=== PATIENT | male | born 1960 | race Caucasian/White ===

== ENCOUNTER 2017-10-01 09:07 | Outpatient (CLI) | payer OTHER ==
[~2017-10-01 09:07] MED LIST: DICL100G15 TOP; NO HOME MEDS
== END 2017-10-01 23:59 | disposition home or self-care (01) ==
LOC: RAD 09:07
PROVIDERS: ATTEND Family Medicine
DX: I12.9 Hypertensive chronic kidney disease with stage 1 through stage 4 chronic kidney disease, or unspecified chronic kidney disease (principal); I10 Essential (primary) hypertension; N18.1 Chronic kidney disease, stage 1; N20.0 Calculus of kidney
CPT/HCPCS: 76775

== ENCOUNTER 2017-12-10 07:05 | Outpatient (CLI) | payer OTHER ==
[2017-12-10 07:59] LABS: CLARITY,URINE Clear (Clear); COLOR,URINE Yellow (Yellow); GLUCOSE, URINE Negative (Neg); KETONES,URINE Negative (Neg); LEUKOCYTE ESTERASE ,URINE Negative (Neg); NITRITES, URINE Negative (Neg); OCCULT BLOOD,URINE Negative (Neg); PROTEIN,URINE Negative (Neg); UROBILINOGEN,URINE 0.2 E.U/dL (0.2-1.0)
[2017-12-10 08:11] LABS: ALANINE AMINOTRANSFERASE 50 U/L (12-78); ALBUMIN/GLOBULIN RATIO 1.3 (1.1-1.5); ALKALINE PHOSPHATASE 79 IU/L (46-116); ANION GAP 8 (8-16); ASPARTATE AMINO TRANSFERASE 27 U/L (10-37); BILIRUBIN,TOTAL 0.6 MG/DL (0.1-1.0); BLOOD UREA NITROGEN 22 MG/DL (7-18); BUN/CREATININE RATIO 17.3 (5.4-32.0); CALCIUM 8.8 MG/DL (8.5-10.1); CHLORIDE 106 MMOL/L (99-107); CHOL/HDL RATIO 4.6 (0.00-4.99); CHOLESTEROL 203 MG/DL (0-200); CREATININE 1.27 MG/DL (0.60-1.10); GLUCOSE 97 MG/DL (70-104); HDL CHOLESTEROL 44 MG/DL (35-60); LDL CHOLESTEROL 133 MG/DL (50-100); POTASSIUM 4.4 MMOL/L (3.5-5.1); SODIUM 142 MMOL/L (135-145); TOTAL CARBON DIOXIDE 28.4 MMOL/L (24-32); TOTAL PROTEIN 7.2 G/DL (6.4-8.2); TRIGLYCERIDES 119 MG/DL (20-135); eGFR 58 ML/MIN
[2017-12-10 08:14] LABS: UA COLLECTION TYPE VOIDED
[2017-12-10 08:17] LABS: HEMOGLOBIN A1C 5.1 % (4.5-6.2)
[2017-12-11 09:24] LABS: PARATHYROID HORMONE 96.2 PG/ML (11-67)
[2017-12-11 11:13] LABS: VITAMIN D, 25-HYDROXY 21.8 ng/mL (30.0-100.0)
== END 2017-12-10 23:59 | disposition home or self-care (01) ==
LOC: LAB 07:05
PROVIDERS: ATTEND Family Medicine
DX: E78.5 Hyperlipidemia, unspecified (principal); N20.0 Calculus of kidney; R73.02 Impaired glucose tolerance (oral); I12.9 Hypertensive chronic kidney disease with stage 1 through stage 4 chronic kidney disease, or unspecified chronic kidney disease; N18.1 Chronic kidney disease, stage 1; E55.9 Vitamin D deficiency, unspecified; Z91.89 Other specified personal risk factors, not elsewhere classified
CPT/HCPCS: 36415; 80053; 80061; 81003; 82306; 82330; 83036; 83970; 84402; 84403

== ENCOUNTER 2018-01-21 14:10 | Inpatient (IN) | payer OTHER ==
[~2018-01-21] VITALS: Ht 182.9 cm; Wt 104.5 kg
[~2018-01-21 14:10] MED LIST changes: -DICL100G15 TOP
[2018-01-21 15:49] LABS: CLARITY,URINE CLEAR (Clear); COLOR,URINE YELLOW (Yellow); GLUCOSE, URINE NEGATIVE (Neg); KETONES,URINE NEGATIVE (Neg); LEUKOCYTE ESTERASE ,URINE NEGATIVE (Neg); NITRITES, URINE NEGATIVE (Neg); OCCULT BLOOD,URINE TRACE-LYSED (Neg); PROTEIN,URINE NEGATIVE (Neg); UROBILINOGEN,URINE 0.2 E.U/dL (0.2-1.0)
[2018-01-21 15:51] LABS: BASOPHILS % (AUTO) 0.7 % (0-1); EOSINOPHILS # (AUTO) 0.2 X10'3 (0-0.9); EOSINOPHILS % (AUTO) 3.5 % (0-6); LYMPHOCYTES # (AUTO) 1.2 X10'3 (1.1-4.8); LYMPHOCYTES % (AUTO) 17.5 % (21-51); MEAN CORPUSCULAR HEMOGLOBIN 28.3 PG (27.0-31.0); MEAN CORPUSCULAR HGB CONC 33.5 % (33.0-36.5); MEAN CORPUSCULAR VOLUME 84.4 FL (78-98); MEAN PLATELET VOLUME 8.3 FL (7.4-10.4); MONOCYTES # (AUTO) 0.7 X10'3 (0-0.9); MONOCYTES % (AUTO) 9.9 % (2-12); NEUTROPHILS % (AUTO) 68.4 % (42-75); PRE OP HEMOGLOBIN 15.8 g/dL (14.0-17.9); PRE OP PLATELET COUNT 224 X10'3 (140-440); RED BLOOD COUNT 5.57 X10'6 (4.70-6.10); RED CELL DISTRIBUTION WIDTH 13.5 % (11.5-14.5)
[2018-01-21 15:55] LABS: UA COLLECTION TYPE CLN CATCH MIDSTREAM
[2018-01-21 15:56] LABS: MUCUS STRANDS FEW /LPF (Neg); SQUAMOUS EPITHELIAL CELL,UR FEW /LPF (FEW)
[2018-01-21 15:57] LABS: BACTERIA,URINE FEW /HPF (Neg); RBC,URINE 0-2 /HPF (0-2); WBC,URINE 0-4 /HPF (0-4)
[2018-01-21 16:05] LABS: ALBUMIN 4.2 G/DL (3.4-5.0); ALBUMIN/GLOBULIN RATIO 1.1 (1.1-1.5); ALKALINE PHOSPHATASE 100 IU/L (46-116); BLOOD UREA NITROGEN 30 MG/DL (7-18); BUN/CREATININE RATIO 19.4 (5.4-32.0); CALCIUM 9.3 MG/DL (8.5-10.1); CHLORIDE 105 MMOL/L (99-107); CREATININE 1.55 MG/DL (0.60-1.10); PRE OP ALT 48 U/L (30-65); PRE OP ANION GAP 9 (8-16); PRE OP AST 19 U/L (10-37); PRE OP BILIRUB, TOTAL 0.5 MG/DL (0.0-1.0); PRE OP GLUCOSE 83 MG/DL (70-104); PRE OP POTASSIUM 4.2 MMOL/L (3.4-5.1); PRE OP SODIUM 143 MMOL/L (135-145); TOTAL CARBON DIOXIDE 28.6 MMOL/L (24-32); eGFR 46 ML/MIN
[2018-01-22] VITALS (20 sets, daily range): BP systolic 86–145; BP diastolic 46–93
[2018-01-22] MEDS ORDERED: ringers solution, lacted 1,000 ML IV SCH ×2 (05:00→14:25)
[2018-01-22] MEDS ORDERED: acetaminophen 325mg tablet PO ONE (05:30)
[2018-01-22] MEDS ORDERED: oxyCODONE SR 10mg (sust. release) tab PO ONE (05:30)
[2018-01-22] MEDS ORDERED: ceFAZolin 2gm in dextrose, iso 100 ML IV ONE (05:30)
[2018-01-22] MEDS ORDERED: famotidine 20mg tablet PO ONE (05:30)
[2018-01-22] MEDS ORDERED: tranexamic acid inj. 1,000 MG in normal saline 100ml IV soln 90 ML IV ONE (05:30)
[2018-01-22] MEDS ORDERED: metoclopramide 5 mg/ml inj IV ONE (05:30)
[2018-01-22] MEDS ORDERED: celeCOXIB 100mg capsule PO ONE (05:30)
[2018-01-22] MEDS ORDERED: gabapentin 300mg capsule PO ONE (05:30)
[2018-01-22] MEDS ORDERED: vancomycin inj 1,500 MG in normal saline 300ml IV soln IV ONE (05:30)
[2018-01-22] MEDS ORDERED: magnesium hydroxide 30ml (MOM) UD suspension PO PRN (07:15)
[2018-01-22] MEDS ORDERED: oxyCODONE/APAP 10/325mg tablet PO PRN (07:15)
[2018-01-22] MEDS ORDERED: MORPHINE 2MG in 2ml NS syringe IV PRN (07:15)
[2018-01-22] MEDS ORDERED: diphenhydrAMINE 25mg capsule PO PRN ×2 (07:15)
[2018-01-22] MEDS ORDERED: acetaminophen 325mg tablet PO PRN (07:15)
[2018-01-22] MEDS ORDERED: bisacodyl 10mg suppository rectal RC PRN (07:15)
[2018-01-22] MEDS: ascorbic acid 500mg tablet PO SCH ×2 (08:00→20:25)
[2018-01-22] MEDS ORDERED: gabapentin 300mg capsule PO SCH (08:00)
[2018-01-22] MEDS ORDERED: multivitamins, therapeutics tablet PO SCH (08:00)
[2018-01-22] MEDS ORDERED: aspirin 325mg tablet PO SCH (08:30)
[2018-01-22] MEDS ORDERED: vancomycin 1,000mg inj ONE (12:46)
[2018-01-22] MEDS ORDERED: ketorolac trometh. 30mg/ml inj. ONE (12:46)
[2018-01-22] MEDS ORDERED: cloNIDine hcl/PF 100mcg/ml inj ONE (12:46)
[2018-01-22] MEDS ORDERED: ROPIVAcaine 0.5% (5mg/ml) 30ml vial ONE (12:46)
[2018-01-22] MEDS ORDERED: epiNEPHrine 1 mg/ml inj ONE (12:46)
[2018-01-22] MEDS ORDERED: morphine /PF 1mg/ml 10ml inj. ONE (13:18)
[2018-01-22] MEDS ORDERED: MIDAZolam 1mg/ml 10ml vial ONE (13:18)
[2018-01-22] MEDS ORDERED: diphenhydrAMINE 50 mg/ml inj IV PRN (14:25)
[2018-01-22] MEDS ORDERED: ondansetron/PF 4mg/2ml inj IV PRN ×2 (14:25)
[2018-01-22] MEDS ORDERED: morphine 4 MG/ML inj SYRINge IV PRN ×2 (14:25)
[2018-01-22] MEDS ORDERED: naloxone 2mg/2ml inj 2 MG in normal saline 500ml IV soln 500 ML IV PRN (14:25)
[2018-01-22] MEDS ORDERED: meperidine/PF 50mg/ml syringe IV PRN ×3 (14:25)
[2018-01-22] MEDS ORDERED: propofol inj 20 ML IV ONE ×2 (15:00→15:01)
[2018-01-22] MEDS: potassium cl 20mEq in 1/2 NS 1,000 ML IV SCH ×3 (15:13→23:13)
[2018-01-22] MEDS ORDERED: cefazolin/dext.iso 2gm/50ml 50 ML IV SCH (18:00)
[2018-01-22] MEDS: sennosides 8.6mg tablet PO SCH (20:26)
[2018-01-22] MEDS: gabapentin 300mg capsule PO SCH (20:26)
[2018-01-22] MEDS: ceFAZolin 2gm in dextrose, iso 100 ML IV SCH (23:29)
[2018-01-23] MEDS: ondansetron/PF 4mg/2ml inj IV PRN ×3 (00:19→17:48)
[2018-01-23 02:00] VITALS: BP 112/80
[2018-01-23] MEDS: potassium cl 20mEq in 1/2 NS 1,000 ML IV SCH ×3 (05:42→23:13)
[2018-01-23 05:50] LABS: BASOPHILS % (AUTO) 0.2 % (0-1); EOSINOPHILS # (AUTO) 0.1 X10'3 (0-0.9); EOSINOPHILS % (AUTO) 1.3 % (0-6); HEMOGLOBIN 12.9 g/dl (14.0-17.9); LYMPHOCYTES # (AUTO) 0.5 X10'3 (1.1-4.8); LYMPHOCYTES % (AUTO) 6.9 % (21-51); MEAN CORPUSCULAR HEMOGLOBIN 29.2 PG (27.0-31.0); MEAN CORPUSCULAR HGB CONC 34.7 % (33.0-36.5); MEAN CORPUSCULAR VOLUME 84.2 FL (78-98); MEAN PLATELET VOLUME 7.9 FL (7.4-10.4); MONOCYTES # (AUTO) 0.6 X10'3 (0-0.9); NEUTROPHILS # (AUTO) 6.4 X10'3 (1.8-7.7); NEUTROPHILS % (AUTO) 83.6 % (42-75); PLATELET COUNT 188 X10'3 (140-440); RED CELL DISTRIBUTION WIDTH 13.8 % (11.5-14.5); WHITE BLOOD COUNT 7.6 X10'3 (4.5-11.0)
[2018-01-23 06:00] VITALS: BP 128/82
[2018-01-23 06:10] LABS: ANION GAP 7 (8-16); CHLORIDE 106 MMOL/L (99-107); POTASSIUM 4.3 MMOL/L (3.5-5.1); SODIUM 141 MMOL/L (135-145); TOTAL CARBON DIOXIDE 27.7 MMOL/L (24-32)
[2018-01-23] MEDS: aspirin 325mg tablet PO SCH (08:40)
[2018-01-23] MEDS: gabapentin 300mg capsule PO SCH ×3 (08:40→20:17)
[2018-01-23] MEDS: multivitamins, therapeutics tablet PO SCH (08:40)
[2018-01-23] MEDS: ascorbic acid 500mg tablet PO SCH ×2 (08:40→20:17)
[2018-01-23] MEDS: ceFAZolin 2gm in dextrose, iso 100 ML IV SCH (08:41)
[2018-01-23 10:00] VITALS: BP 130/75
[2018-01-23] MEDS: oxyCODONE/APAP 10/325mg tablet PO PRN ×2 (17:48→22:56)
[2018-01-23 18:00] VITALS: BP 153/88
[2018-01-23] MEDS: sennosides 8.6mg tablet PO SCH (20:17)
[2018-01-23 22:00] VITALS: BP 138/79
[2018-01-24 06:11] LABS: BASOPHILS % (AUTO) 0.1 % (0-1); EOSINOPHILS # (AUTO) 0.3 X10'3 (0-0.9); EOSINOPHILS % (AUTO) 3.5 % (0-6); HEMATOCRIT 38.9 % (42.0-52.0); HEMOGLOBIN 13.3 g/dl (14.0-17.9); LYMPHOCYTES # (AUTO) 0.8 X10'3 (1.1-4.8); LYMPHOCYTES % (AUTO) 8.5 % (21-51); MEAN CORPUSCULAR HEMOGLOBIN 29.3 PG (27.0-31.0); MEAN CORPUSCULAR HGB CONC 34.2 % (33.0-36.5); MEAN CORPUSCULAR VOLUME 85.7 FL (78-98); MEAN PLATELET VOLUME 7.7 FL (7.4-10.4); MONOCYTES # (AUTO) 1.1 X10'3 (0-0.9); MONOCYTES % (AUTO) 11.7 % (2-12); NEUTROPHILS % (AUTO) 76.2 % (42-75); PLATELET COUNT 174 X10'3 (140-440); RED BLOOD COUNT 4.54 X10'6 (4.70-6.10); RED CELL DISTRIBUTION WIDTH 13.5 % (11.5-14.5); WHITE BLOOD COUNT 9.2 X10'3 (4.5-11.0)
[2018-01-24 07:00] VITALS: BP 144/92
[2018-01-24] MEDS: ascorbic acid 500mg tablet PO SCH ×2 (08:33→20:02)
[2018-01-24] MEDS: gabapentin 300mg capsule PO SCH ×3 (08:34→20:02)
[2018-01-24] MEDS: aspirin 325mg tablet PO SCH (08:34)
[2018-01-24] MEDS: multivitamins, therapeutics tablet PO SCH (08:34)
[2018-01-24 10:00] VITALS: BP 124/75
[2018-01-24 18:00] VITALS: BP 139/80
[2018-01-24] MEDS: oxyCODONE/APAP 10/325mg tablet PO PRN (19:52)
[2018-01-24] MEDS: sennosides 8.6mg tablet PO SCH (20:02)
[2018-01-24 22:00] VITALS: BP 143/89
[2018-01-25] MEDS: oxyCODONE/APAP 10/325mg tablet PO PRN ×4 (03:48→20:42)
[2018-01-25 05:00] VITALS: BP 150/93
[2018-01-25] MEDS: gabapentin 300mg capsule PO SCH ×3 (07:07→20:41)
[2018-01-25] MEDS: multivitamins, therapeutics tablet PO SCH (07:07)
[2018-01-25] MEDS: ascorbic acid 500mg tablet PO SCH ×2 (07:07→20:41)
[2018-01-25 08:03] LABS: BASOPHILS % (AUTO) 0.2 % (0-1); EOSINOPHILS # (AUTO) 0.3 X10'3 (0-0.9); HEMATOCRIT 37.5 % (42.0-52.0); LYMPHOCYTES # (AUTO) 0.7 X10'3 (1.1-4.8); LYMPHOCYTES % (AUTO) 9.5 % (21-51); MEAN CORPUSCULAR HEMOGLOBIN 29.4 PG (27.0-31.0); MEAN CORPUSCULAR HGB CONC 34.6 % (33.0-36.5); MEAN CORPUSCULAR VOLUME 85.1 FL (78-98); MEAN PLATELET VOLUME 7.7 FL (7.4-10.4); MONOCYTES % (AUTO) 12.1 % (2-12); NEUTROPHILS # (AUTO) 5.8 X10'3 (1.8-7.7); NEUTROPHILS % (AUTO) 74.2 % (42-75); PLATELET COUNT 195 X10'3 (140-440); RED BLOOD COUNT 4.41 X10'6 (4.70-6.10); RED CELL DISTRIBUTION WIDTH 13.9 % (11.5-14.5); WHITE BLOOD COUNT 7.9 X10'3 (4.5-11.0)
[2018-01-25] MEDS: aspirin 325mg tablet PO SCH (09:04)
[2018-01-25 10:00] VITALS: BP 138/88
[2018-01-25 18:30] VITALS: BP 150/85
[2018-01-25] MEDS: sennosides 8.6mg tablet PO SCH (20:41)
[2018-01-25 22:00] VITALS: BP 153/86
[2018-01-26] MEDS: oxyCODONE/APAP 10/325mg tablet PO PRN ×2 (02:10→07:59)
[2018-01-26 05:00] VITALS: BP 152/92
[2018-01-26] MEDS ORDERED: ASPI-1 PO (05:44)
[2018-01-26 06:54] VITALS: BP 138/90
[2018-01-26] MEDS: gabapentin 300mg capsule PO SCH (07:54)
[2018-01-26] MEDS: multivitamins, therapeutics tablet PO SCH (07:54)
[2018-01-26] MEDS: ascorbic acid 500mg tablet PO SCH (07:55)
[2018-01-26] MEDS: aspirin 325mg tablet PO SCH (07:56)
== END 2018-01-26 10:05 | disposition home or self-care (01) | DRG 470 ==
LOC: EDSTATUS 14:10 → PAS IN 01-22 10:46 → EDSTATUS 01-22 14:00 → ORTHO 4S 01-22 17:22
PROVIDERS: ADMIT Orthopaedic Surgery; ATTEND Orthopaedic Surgery
PROC: 0SRB0JZ Replacement of Left Hip Joint with Synthetic Substitute, Open Approach (ICD-10-PCS; principal; 2018-01-22 13:12)
DX: M16.12 Unilateral primary osteoarthritis, left hip (principal); D62 Acute posthemorrhagic anemia; Z79.82 Long term (current) use of aspirin
CPT/HCPCS: 36415; 71046; 72170; 80051; 80053; 81001; 85025; 86885; 86900; 86901; 87070; 93005; 97110; 97116; 97162; 97530; A4615; A6258; A7000; C1758; C1776; J0171; J0690; J0735; J1885; J2250; J2274; J2405; J2704; J2765; J2795; J3370; J7030; J7120; Q0163

== ENCOUNTER 2019-01-28 11:41 | Emergency (ER) | payer OTHER ==
[~2019-01-28] VITALS: Ht 182.9 cm; Wt 101.8 kg
[~2019-01-28 11:41] MED LIST changes: +ASPI-1 PO
[2019-01-28] MEDS ORDERED: ROBCFL PO (11:56)
[2019-01-28] MEDS ORDERED: AZIT250T PO (11:56)
[2019-01-28 12:09] VITALS: BP 147/87
== END 2019-01-28 12:47 | disposition home or self-care (01) ==
LOC: ER 11:41
DX: J20.9 Acute bronchitis, unspecified (principal); I10 Essential (primary) hypertension; Z90.49 Acquired absence of other specified parts of digestive tract; Z98.890 Other specified postprocedural states; Z79.82 Long term (current) use of aspirin; Z79.2 Long term (current) use of antibiotics; Z79.899 Other long term (current) drug therapy
CPT/HCPCS: 71045; 93005; 99283

== ENCOUNTER 2019-03-30 09:07 | Emergency (ER) | payer OTHER ==
[~2019-03-30] VITALS: Ht 182.9 cm; Wt 102.3 kg
[2019-03-30 09:40] VITALS: BP 150/100
== END 2019-03-30 09:47 | disposition home or self-care (01) ==
LOC: ER 09:07
DX: I10 Essential (primary) hypertension (principal); Z77.21 Contact with and (suspected) exposure to potentially hazardous body fluids; Z79.82 Long term (current) use of aspirin; Z87.442 Personal history of urinary calculi; Z90.49 Acquired absence of other specified parts of digestive tract; Z98.890 Other specified postprocedural states
CPT/HCPCS: 99281

== ENCOUNTER 2019-05-13 10:34 | Emergency (ER) | payer OTHER ==
[~2019-05-13] VITALS: Ht 185.4 cm; Wt 105.0 kg
[2019-05-13 12:11] VITALS: BP 132/65
== END 2019-05-13 12:17 | disposition home or self-care (01) ==
LOC: ER 10:34
DX: S46.811A Strain of other muscles, fascia and tendons at shoulder and upper arm level, right arm, initial encounter (principal); I10 Essential (primary) hypertension; Z87.442 Personal history of urinary calculi; Z90.49 Acquired absence of other specified parts of digestive tract; Z79.82 Long term (current) use of aspirin; X58.XXXA Exposure to other specified factors, initial encounter; Y93.89 Activity, other specified; Y92.89 Other specified places as the place of occurrence of the external cause; Y99.8 Other external cause status
CPT/HCPCS: 99281

== ENCOUNTER 2019-09-13 14:56 | Emergency (ER) | payer OTHER ==
[~2019-09-13] VITALS: Ht 182.9 cm; Wt 102.3 kg
[2019-09-13 15:00] VITALS: BP 131/80
[2019-09-13] MEDS ORDERED: proparacaine 0.5% ophthalmic drops 15ml LEFTEYE ONE (15:45)
[2019-09-13] MEDS ORDERED: ofloxacin 0.33% 5ml ophthalmic drops LEFTEYE STA (16:10)
[2019-09-13] MEDS ORDERED: moxifloxacin 0.5% ophthalmic drops 3ml LEFTEYE STA (16:25)
== END 2019-09-13 16:48 | disposition home or self-care (01) ==
LOC: ER 14:57
DX: T15.02XA Foreign body in cornea, left eye, initial encounter (principal); I10 Essential (primary) hypertension; Z90.49 Acquired absence of other specified parts of digestive tract; Z87.442 Personal history of urinary calculi; Z98.890 Other specified postprocedural states; Z79.82 Long term (current) use of aspirin; W22.8XXA Striking against or struck by other objects, initial encounter; Y93.89 Activity, other specified; Y92.89 Other specified places as the place of occurrence of the external cause; Y99.8 Other external cause status
CPT/HCPCS: 65220; 99284

== ENCOUNTER 2020-01-04 06:44 | Outpatient (CLI) | payer OTHER ==
[2020-01-04 07:25] LABS: BASOPHILS # (AUTO) 0.1 X10'3 (0-0.2); BASOPHILS % (AUTO) 0.9 % (0-1); EOSINOPHILS # (AUTO) 0.3 X10'3 (0-0.9); EOSINOPHILS % (AUTO) 6.1 % (0-6); HEMATOCRIT 46.8 % (42.0-52.0); HEMOGLOBIN 15.9 g/dl (14.0-17.9); LYMPHOCYTES # (AUTO) 1.2 X10'3 (1.1-4.8); MEAN CORPUSCULAR HEMOGLOBIN 28.9 PG (27.0-31.0); MEAN CORPUSCULAR VOLUME 85.1 FL (78-98); MEAN PLATELET VOLUME 7.8 FL (7.4-10.4); MONOCYTES # (AUTO) 0.6 X10'3 (0-0.9); MONOCYTES % (AUTO) 10.5 % (2-12); NEUTROPHILS # (AUTO) 3.5 X10'3 (1.8-7.7); NEUTROPHILS % (AUTO) 61.5 % (42-75); PLATELET COUNT 233 X10'3 (140-440); RED CELL DISTRIBUTION WIDTH 13.5 % (11.5-14.5); WHITE BLOOD COUNT 5.7 X10'3 (4.5-11.0)
[2020-01-04 09:15] LABS: ALANINE AMINOTRANSFERASE 43 U/L (12-78); ALBUMIN 3.8 G/DL (3.4-5.0); ALBUMIN/GLOBULIN RATIO 1.1 (1.1-1.5); ALKALINE PHOSPHATASE 76 IU/L (46-116); ANION GAP 10 (8-16); ASPARTATE AMINO TRANSFERASE 27 U/L (10-37); BILIRUBIN,TOTAL 0.4 MG/DL (0.1-1.0); BLOOD UREA NITROGEN 25 MG/DL (7-18); BUN/CREATININE RATIO 16.9 (5.4-32.0); C-REACTIVE PROTEIN 0.27 MG/DL (0.0-0.5); CALCIUM 8.5 MG/DL (8.5-10.1); CHLORIDE 105 MMOL/L (99-107); CHOL/HDL RATIO 4.9 (0.00-4.99); CHOLESTEROL 202 MG/DL (0-200); CREATININE 1.48 MG/DL (0.60-1.10); GLUCOSE 92 MG/DL (70-104); HDL CHOLESTEROL 41 MG/DL (35-60); LDL CHOLESTEROL 129 MG/DL (50-100); SODIUM 142 MMOL/L (135-145); TOTAL PROTEIN 7.3 G/DL (6.4-8.2); TRIGLYCERIDES 147 MG/DL (20-135); eGFR 48 ML/MIN
== END 2020-01-04 23:59 | disposition home or self-care (01) ==
LOC: LAB 06:44
PROVIDERS: ATTEND Family Medicine
DX: M16.10 Unilateral primary osteoarthritis, unspecified hip (principal); E78.5 Hyperlipidemia, unspecified; I10 Essential (primary) hypertension; Z91.09 Other allergy status, other than to drugs and biological substances; Z87.442 Personal history of urinary calculi
CPT/HCPCS: 36415; 80053; 80061; 82043; 82330; 82570; 85025; 85651; 86140

== ENCOUNTER 2020-03-14 06:23 | Emergency (ER) | payer OTHER ==
[~2020-03-14] VITALS: Ht 188 cm; Wt 110.0 kg
[2020-03-14 07:07] LABS: BASOPHILS % (AUTO) 0.5 % (0-1); EOSINOPHILS # (AUTO) 0.1 X10'3 (0-0.9); EOSINOPHILS % (AUTO) 1.2 % (0-6); HEMATOCRIT 45.2 % (42.0-52.0); HEMOGLOBIN 15.2 g/dl (14.0-17.9); LYMPHOCYTES # (AUTO) 0.5 X10'3 (1.1-4.8); LYMPHOCYTES % (AUTO) 10.1 % (21-51); MEAN CORPUSCULAR HEMOGLOBIN 29.1 PG (27.0-31.0); MEAN CORPUSCULAR HGB CONC 33.6 g/dL (33.0-36.5); MEAN CORPUSCULAR VOLUME 86.5 FL (78-98); MEAN PLATELET VOLUME 7.8 FL (7.4-10.4); MONOCYTES % (AUTO) 19.7 % (2-12); NEUTROPHILS # (AUTO) 3.5 X10'3 (1.8-7.7); NEUTROPHILS % (AUTO) 68.5 % (42-75); PLATELET COUNT 181 X10'3 (140-440); RED BLOOD COUNT 5.22 X10'6 (4.70-6.10); RED CELL DISTRIBUTION WIDTH 14.1 % (11.5-14.5); WHITE BLOOD COUNT 5.2 X10'3 (4.5-11.0)
[2020-03-14] MEDS ORDERED: ketorolac tromethamine 15mg/ml inj. IV ONE (07:10)
[2020-03-14 07:22] LABS: ALANINE AMINOTRANSFERASE 39 U/L (12-78); ALBUMIN 3.8 G/DL (3.4-5.0); ALBUMIN/GLOBULIN RATIO 1.2 (1.1-1.5); ALKALINE PHOSPHATASE 73 IU/L (46-116); ANION GAP 7 (8-16); ASPARTATE AMINO TRANSFERASE 21 U/L (10-37); BILIRUBIN,TOTAL 0.4 MG/DL (0.1-1.0); BLOOD UREA NITROGEN 18 MG/DL (7-18); BUN/CREATININE RATIO 10.3 (5.4-32.0); CALCIUM 8.7 MG/DL (8.5-10.1); CHLORIDE 106 MMOL/L (99-107); CREATININE 1.75 MG/DL (0.60-1.10); GLUCOSE 100 MG/DL (70-104); LACTATE DEHYDROGENASE 203 U/L (85-227); SODIUM 141 MMOL/L (135-145); TOTAL CARBON DIOXIDE 27.8 MMOL/L (24-32); TOTAL PROTEIN 6.9 G/DL (6.4-8.2); eGFR 40 ML/MIN
--- NOTE | 2020-03-14 07:40 | NUR ---
RN walked rapid covid test to lab.
--- NOTE | 2020-03-14 07:50 | NUR ---
Pt resting comfortably, adjusted pt in bed, no complaints at this time. will continue to monitor.
[2020-03-14 07:53] VITALS: BP 139/91
[2020-03-14] MEDS ORDERED: BENZ-38 PO (08:09)
[2020-03-14 08:39] LABS: TOTAL CELLS COUNTED 100
[2020-03-14 08:40] LABS: PLATELET ESTIMATE NORMAL; SMUDGE CELLS 1+; TOXIC VACUOLATION 1+
== END 2020-03-14 08:44 | disposition home or self-care (01) ==
LOC: EEVIPCON 06:23 → ER 06:23
DX: U07.1 COVID-19 (principal); I10 Essential (primary) hypertension; Z87.442 Personal history of urinary calculi; Z90.49 Acquired absence of other specified parts of digestive tract; Z98.890 Other specified postprocedural states; Z79.82 Long term (current) use of aspirin; Z79.899 Other long term (current) drug therapy
CPT/HCPCS: 36415; 71045; 80053; 83615; 85025; 87635; 93005; 96374; 99285; J1885

== ENCOUNTER 2020-03-18 12:36 | Emergency (ER) | payer OTHER ==
[~2020-03-18] VITALS: Ht 182.9 cm; Wt 103.6 kg
[~2020-03-18 12:36] MED LIST changes: +BENZ-38 PO
[2020-03-18 14:14] VITALS: BP 115/79
== END 2020-03-18 14:41 | disposition home or self-care (01) ==
LOC: ER 12:38 → EEVIPCON 12:38 → ER 14:41
DX: U07.1 COVID-19 (principal); R05 Cough; R06.02 Shortness of breath; I10 Essential (primary) hypertension; Z90.49 Acquired absence of other specified parts of digestive tract; Z98.890 Other specified postprocedural states; Z79.82 Long term (current) use of aspirin; Z79.899 Other long term (current) drug therapy
CPT/HCPCS: 71045; 99283

== ENCOUNTER 2020-03-22 13:44 | Inpatient (IN) | payer OTHER ==
[~2020-03-22] VITALS: Ht 182.9 cm; Wt 102.7 kg
[2020-03-22] MEDS ORDERED: ringers solution, lacted 1,000 ML IV ONE (14:15)
[2020-03-22] MEDS ORDERED: acetaminophen 325mg tablet PO ONE (14:15)
[2020-03-22] MEDS ORDERED: acetaminophen 325mg tablet ONE (14:21)
[2020-03-22 14:23] LABS: BASOPHILS % (AUTO) 0.1 % (0-1); EOSINOPHILS % (AUTO) 0.4 % (0-6); HEMATOCRIT 48.4 % (42.0-52.0); HEMOGLOBIN 16.1 g/dl (14.0-17.9); LYMPHOCYTES # (AUTO) 0.5 X10'3 (1.1-4.8); LYMPHOCYTES % (AUTO) 14.9 % (21-51); MEAN CORPUSCULAR HEMOGLOBIN 28.7 PG (27.0-31.0); MEAN CORPUSCULAR HGB CONC 33.3 g/dL (33.0-36.5); MEAN CORPUSCULAR VOLUME 86.2 FL (78-98); MEAN PLATELET VOLUME 8.6 FL (7.4-10.4); MONOCYTES # (AUTO) 0.4 X10'3 (0-0.9); MONOCYTES % (AUTO) 10.5 % (2-12); NEUTROPHILS # (AUTO) 2.7 X10'3 (1.8-7.7); NEUTROPHILS % (AUTO) 74.1 % (42-75); PLATELET COUNT 159 X10'3 (140-440); RED BLOOD COUNT 5.61 X10'6 (4.70-6.10); RED CELL DISTRIBUTION WIDTH 14.4 % (11.5-14.5); WHITE BLOOD COUNT 3.6 X10'3 (4.5-11.0)
[2020-03-22] MEDS ORDERED: ceFAZolin 1GM/D5W- ADD-VANTAGE 50 ML IV ONE (14:55)
[2020-03-22] MEDS ORDERED: azithromycin/NS 500mg/250ml 250 ML IV ONE (14:55)
--- NOTE | 2020-03-22 15:19 | NUR ---
PT O2 SATS 88%-93% AT REST ON RA
[2020-03-22 15:59] LABS: D-DIMER 0.37 MG/L FEU (0-0.50); PARTIAL THROMBOPLASTIN TIME 33 SECONDS (22-32)
[2020-03-22 16:06] LABS: ALANINE AMINOTRANSFERASE 52 U/L (12-78); ALBUMIN/GLOBULIN RATIO 0.9 (1.1-1.5); ALKALINE PHOSPHATASE 73 IU/L (46-116); ANION GAP 7 (8-16); ASPARTATE AMINO TRANSFERASE 36 U/L (10-37); BILIRUBIN,TOTAL 0.5 MG/DL (0.1-1.0); BLOOD UREA NITROGEN 19 MG/DL (7-18); BUN/CREATININE RATIO 10.7 (5.4-32.0); CHLORIDE 106 MMOL/L (99-107); CREATININE 1.78 MG/DL (0.60-1.10); GLUCOSE 81 MG/DL (70-104); POTASSIUM 3.9 MMOL/L (3.5-5.1); SODIUM 142 MMOL/L (135-145); TOTAL CARBON DIOXIDE 28.6 MMOL/L (24-32); TOTAL PROTEIN 6.5 G/DL (6.4-8.2); eGFR 39 ML/MIN
[2020-03-22 16:11] LABS: TROPONIN I < 0.04 NG/ML (0.0-0.05)
[2020-03-22] MEDS ORDERED: LISI1TAB32 PO (16:17)
[2020-03-22] MEDS ORDERED: IBUP-1986 PO (16:31)
[2020-03-22] MEDS ORDERED: ACET-1025 PO (16:32)
[2020-03-22] MEDS ORDERED: mag hydrox/Alum hydrox/simeth 30ml oral suspension PO PRN (16:40)
[2020-03-22] MEDS ORDERED: ondansetron/PF 4mg/2ml inj IV PRN (16:40)
[2020-03-22] MEDS ORDERED: magnesium hydroxide 30ml (MOM) UD suspension PO PRN (16:40)
[2020-03-22] MEDS ORDERED: acetaminophen 325mg tablet PO PRN (16:40)
[2020-03-22] MEDS ORDERED: REMDESIVIR INJ 200 MG in normal saline 100ml IV soln 100 ML IV ONE (16:40)
[2020-03-22 17:08] LABS: CLARITY,URINE CLEAR (Clear); COLOR,URINE YELLOW (Yellow); GLUCOSE, URINE NEGATIVE (Neg); KETONES,URINE 15 mg/dl (Neg); LEUKOCYTE ESTERASE ,URINE NEGATIVE (Neg); NITRITES, URINE NEGATIVE (Neg); OCCULT BLOOD,URINE TRACE-INTACT (Neg); PH,URINE 5.5 (4.8-8.0); PROTEIN,URINE TRACE mg/dl (Neg); UROBILINOGEN,URINE 0.2 E.U/dL (0.2-1.0)
[2020-03-22 17:13] LABS: UA COLLECTION TYPE VOIDED
[2020-03-22 17:16] LABS: BACTERIA,URINE NONE SEEN /HPF (Neg); MUCUS STRANDS MANY /LPF (Neg); RBC,URINE 0-2 /HPF (0-2); SQUAMOUS EPITHELIAL CELL,UR FEW /LPF (FEW); TRANSITIONAL EPI CELLS,URINE FEW /HPF; WBC,URINE 0-4 /HPF (0-4)
[2020-03-22 17:17] LABS: HYALINE CASTS 0-3 /LPF (NEGATIVE)
[2020-03-22 17:39] LABS: C-REACTIVE PROTEIN 7.77 MG/DL (0.0-0.5); LACTATE DEHYDROGENASE 265 U/L (85-227)
--- NOTE | 2020-03-22 18:12 | NUR ---
Phoned Pharmacy regarding the dose of remdesivir that shows pending since 1640. Pharmacy staff reports the medication is not available at this facility and has been requested from another [facility] but we are not sure when it will arrive here to be administered.
[2020-03-22] MEDS: normal saline 1000ml 1,000 ML IV SCH (18:21)
--- NOTE | 2020-03-22 18:43 | NUR ---
Report to NUA Glover on PCU. Pt will be transported from ED to isolation room 3008-A shortly.
--- NOTE | 2020-03-22 18:44 | NUR ---
Patient in room ED 3. I have received report from Maria Del Rosario Rice RN in ER and had the opportunity to ask questions and assume patient care.
[2020-03-22 19:10] VITALS: BP 120/70
--- NOTE | 2020-03-22 19:48 | NUR ---
Arrived@1900 to [facility] rm 3008 Patient walked from [facility] to the bed. Gait is slow but steady. Educated on MRSA swab and tele monitoring. Oriented to room and call light. Vital signs stable and entered. A&Ox4
[2020-03-22] MEDS ORDERED: heparin, porcine 5000 units/ml vial SQ SCH (20:00)
--- NOTE | 2020-03-22 20:37 | NUR ---
Called Pharmacy for the Remdesir medication and it's still not here. And they are not sure if the medication will arrive tonight or tomorrow from the other facility.
[2020-03-22 22:02] VITALS: BP 109/68
[2020-03-23] MEDS: normal saline 1000ml 1,000 ML IV SCH (04:00)
[2020-03-23 04:15] VITALS: BP 134/85
[2020-03-23 06:00] VITALS: BP 127/84
--- NOTE | 2020-03-23 06:10 | NUR ---
Patient in room PCU 3008. I have received report from Belen HEATR and had the opportunity to ask questions and assume patient care. Patient laying in bed, eyes closed, no signs of distress. Per report, still awaiting arrival of IV remdesivir from another [facility] facility.
--- NOTE | 2020-03-23 06:12 | NUR ---
Problems reprioritized. Patient report given, questions answered & plan of care reviewed with UNA Hernandez.
[2020-03-23 06:13] LABS: BASOPHILS % (AUTO) 0.3 % (0-1); EOSINOPHILS % (AUTO) 0.3 % (0-6); HEMATOCRIT 39.1 % (42.0-52.0); HEMOGLOBIN 13.1 g/dl (14.0-17.9); LYMPHOCYTES # (AUTO) 0.7 X10'3 (1.1-4.8); MEAN CORPUSCULAR HEMOGLOBIN 28.9 PG (27.0-31.0); MEAN CORPUSCULAR HGB CONC 33.4 g/dL (33.0-36.5); MEAN CORPUSCULAR VOLUME 86.5 FL (78-98); MEAN PLATELET VOLUME 7.9 FL (7.4-10.4); MONOCYTES # (AUTO) 0.4 X10'3 (0-0.9); MONOCYTES % (AUTO) 13.2 % (2-12); NEUTROPHILS % (AUTO) 63.2 % (42-75); PLATELET COUNT 145 X10'3 (140-440); RED BLOOD COUNT 4.52 X10'6 (4.70-6.10); WHITE BLOOD COUNT 3.1 X10'3 (4.5-11.0)
[2020-03-23 06:24] LABS: ALBUMIN 2.5 G/DL (3.4-5.0); ANION GAP 8 (8-16); BLOOD UREA NITROGEN 17 MG/DL (7-18); BUN/CREATININE RATIO 13.3 (5.4-32.0); C-REACTIVE PROTEIN 7.26 MG/DL (0.0-0.5); CALCIUM 7.1 MG/DL (8.5-10.1); CHLORIDE 110 MMOL/L (99-107); CREATININE 1.28 MG/DL (0.60-1.10); GLUCOSE 76 MG/DL (70-104); LACTATE DEHYDROGENASE 238 U/L (85-227); POTASSIUM 3.3 MMOL/L (3.5-5.1); SODIUM 144 MMOL/L (135-145); TOTAL CARBON DIOXIDE 25.7 MMOL/L (24-32); eGFR 57 ML/MIN
[2020-03-23] MEDS: enoxaparin 40mg/0.4ml syringe SUBCUT SCH (07:32)
[2020-03-23] MEDS ORDERED: azithromycin 250mg tablet PO SCH (08:00)
[2020-03-23] MEDS ORDERED: CefTRIAXone 2gm/D5W 50ml 50 ML IV SCH (08:00)
[2020-03-23] MEDS ORDERED: magnesium 4gm in 100ml NS 100 ML IV PRN (09:45)
[2020-03-23] MEDS ORDERED: potassium CL 10mEq/100ml bag 100 ML IV PRN (09:45)
[2020-03-23] MEDS ORDERED: magnesium Cl slow-release 64mg tablet PO PRN (09:45)
[2020-03-23] MEDS ORDERED: potassium Cl 20 mEq SR tablet PO PRN (09:45)
[2020-03-23] MEDS ORDERED: magnesium 2GM in 50ml NS 50 ML IV PRN (09:45)
[2020-03-23] MEDS ORDERED: pneumococcal 23-VAL P-sac vacc 25 mcg/0.5ml vial IMVAC ONE (10:00)
--- NOTE | 2020-03-23 10:21 | NUR ---
Malnutrition consult: Pt presented with increased SOB, positive for COVID-19 03/14. Pt reports 2-13 lb wt loss with decreased appetite per malnutrition risk screen. Current documented wt isn't scaled however is stable with scaled wt hx with range of 105-103.64 kg from May 2019 to March 18 of this year. Pt currently on a heart healthy diet documented with 100% PO intake first meal meeting nutrient needs. Pt with no documented significant decrease in muscle strength or edema. Pt appears well developed, well nourished per ED report. Pt currently lacks a minimum of two criteria for malnutrition. Will continue to follow. Addendum: 03/23/20 at [address] Amended: Links added.
[2020-03-23] MEDS: potassium Cl 20 mEq SR tablet PO PRN ×3 (11:12→19:47)
[2020-03-23] MEDS: benzonatate 100mg capsule PO PRN ×2 (11:12→17:45)
[2020-03-23] MEDS: lisinopril 5mg tablet PO SCH (11:12)
[2020-03-23 11:14] VITALS: BP 142/93
--- NOTE | 2020-03-23 12:36 | NUR ---
PAGER ID: [phone] MESSAGE: Mary bailon [phone]. RE Beulah Merritt 3008. Order for NS @ 100 timed out on DEC. Did you want to continue IVF? At what rate? Or discontinue? Thanks!
[2020-03-23] MEDS ORDERED: normal saline 1000ml 1,000 ML IV SCH (12:40)
--- NOTE | 2020-03-23 14:34 | NUR ---
PAGER ID: [phone] MESSAGE: Mary bailon [phone]. RE Beulah Merritt [address]337. Per Dr. Espitia note, recommends d/c IV fluids. NS@70 currently. Do you want d/c fluids? Thanks
[2020-03-23 15:00] VITALS: BP 144/92
[2020-03-23] MEDS ORDERED: REMDESIVIR INJ 200 MG in normal saline 100ml IV soln 100 ML IV ONE (16:30)
--- NOTE | 2020-03-23 18:05 | NUR ---
Patient in room PCU 3008. I have received report from UNA Hernandez and had the opportunity to ask questions and assume patient care.
--- NOTE | 2020-03-23 18:08 | NUR ---
Problems reprioritized. Patient report given, questions answered & plan of care reviewed with Belen RN. Patient laying in bed, awake, alert, complains of coughing a lot, no other complaints. Stable at time of shift change.
[2020-03-23 19:07] VITALS: BP 148/92
[2020-03-23] MEDS: K and/or MAG REPLACEMENT MC SCH (20:00)
[2020-03-23 21:41] VITALS: BP 136/69
--- NOTE | 2020-03-23 22:05 | NUR ---
MD called back and gave orders for Robutussin as an expectorant. Patient has strong cough but unable to spit anything out.
[2020-03-23] MEDS: guaiFENesin 200 MG/10 ML oral syrup UD cup PO PRN (23:08)
[2020-03-24] MEDS: benzonatate 100mg capsule PO PRN ×3 (02:01→18:01)
[2020-03-24 02:03] VITALS: BP 130/77
[2020-03-24 05:40] LABS: BASOPHILS % (AUTO) 0.4 % (0-1); EOSINOPHILS % (AUTO) 0.8 % (0-6); GLUCOSE 97 MG/DL (70-104); HEMOGLOBIN 14.1 g/dl (14.0-17.9); LYMPHOCYTES # (AUTO) 0.7 X10'3 (1.1-4.8); LYMPHOCYTES % (AUTO) 18.9 % (21-51); MEAN CORPUSCULAR HGB CONC 33.6 g/dL (33.0-36.5); MEAN CORPUSCULAR VOLUME 86.3 FL (78-98); MEAN PLATELET VOLUME 7.6 FL (7.4-10.4); MONOCYTES # (AUTO) 0.5 X10'3 (0-0.9); MONOCYTES % (AUTO) 12.5 % (2-12); NEUTROPHILS # (AUTO) 2.5 X10'3 (1.8-7.7); NEUTROPHILS % (AUTO) 67.4 % (42-75); PLATELET COUNT 162 X10'3 (140-440); POTASSIUM 4.1 MMOL/L (3.5-5.1); RED BLOOD COUNT 4.87 X10'6 (4.70-6.10); RED CELL DISTRIBUTION WIDTH 14.1 % (11.5-14.5); SODIUM 142 MMOL/L (135-145); WHITE BLOOD COUNT 3.7 X10'3 (4.5-11.0)
[2020-03-24 05:41] LABS: ALBUMIN 2.8 G/DL (3.4-5.0); ANION GAP 6 (8-16); BLOOD UREA NITROGEN 18 MG/DL (7-18); BUN/CREATININE RATIO 12.6 (5.4-32.0); C-REACTIVE PROTEIN 5.92 MG/DL (0.0-0.5); CHLORIDE 108 MMOL/L (99-107); CREATININE 1.43 MG/DL (0.60-1.10); LACTATE DEHYDROGENASE 296 U/L (85-227); MAGNESIUM 1.7 MG/DL (1.5-2.4); eGFR 50 ML/MIN
[2020-03-24 06:00] VITALS: BP 141/88
--- NOTE | 2020-03-24 06:07 | NUR ---
Problems reprioritized. Patient report given, questions answered & plan of care reviewed with UNA Hernandez.
--- NOTE | 2020-03-24 06:10 | NUR ---
Patient in room PCU 3008. I have received report from Belen HEART and had the opportunity to ask questions and assume patient care. Patient laying in bed, eyes closed, no signs of distress, will continue to monitor.
[2020-03-24] MEDS: lisinopril 5mg tablet PO SCH (07:26)
[2020-03-24] MEDS: guaiFENesin 200 MG/10 ML oral syrup UD cup PO PRN (07:26)
[2020-03-24] MEDS: enoxaparin 40mg/0.4ml syringe SUBCUT SCH (07:27)
[2020-03-24] MEDS: K and/or MAG REPLACEMENT MC SCH ×2 (08:00→20:00)
[2020-03-24] MEDS ORDERED: pneumococcal 23-VAL P-sac vacc 25 mcg/0.5ml vial IMVAC ONE (10:00)
[2020-03-24] MEDS: normal saline 1000ml 1,000 ML IV SCH (10:19)
[2020-03-24 10:46] VITALS: BP 143/91
[2020-03-24] MEDS ORDERED: codeine/proMETHazine 5ml UD syrup PO PRN (11:10)
[2020-03-24] MEDS: guaiFENesin/codeine phos 10ml UD oral syrup PO PRN ×3 (12:29→20:51)
--- NOTE | 2020-03-24 14:41 | NUR ---
PAGER ID: [phone] MESSAGE: Mary bailon [phone]. RE Beulah Merritt 3008. Pt requesting something for headache, like Tylenol or IBU. Has order for Tylenol for fever. Can I get order for something for pain? thanks!
[2020-03-24] MEDS: acetaminophen 325mg tablet PO PRN (15:31)
[2020-03-24 15:33] VITALS: BP 149/97
--- NOTE | 2020-03-24 18:20 | NUR ---
Problems reprioritized. Patient report given, questions answered & plan of care reviewed with Belen HERAT.
--- NOTE | 2020-03-24 18:26 | NUR ---
Problems reprioritized. Patient report given, questions answered & plan of care reviewed with UNA Hernandez. Addendum: 03/24/20 at 1828 by Belen Luna RN Patient in room [facility] 300. I have received report from UNA Hernandez and had the opportunity to ask questions and assume patient care.
[2020-03-24 20:56] VITALS: BP 136/86
[2020-03-25] MEDS: guaiFENesin/codeine phos 10ml UD oral syrup PO PRN ×2 (03:01→10:44)
[2020-03-25] MEDS: acetaminophen 325mg tablet PO PRN (03:01)
[2020-03-25 03:02] VITALS: BP 160/92
--- NOTE | 2020-03-25 03:40 | NUR ---
PAGER ID: [phone] MESSAGE: Tree Merritt [phone], here for +covid. Patient high BP. Dose in the eMar is lower than his home med dose of Lisinipril/Hctz tab, Can I change it?
[2020-03-25 03:42] LABS: BASOPHILS % (AUTO) 0.3 % (0-1); EOSINOPHILS # (AUTO) 0.1 X10'3 (0-0.9); EOSINOPHILS % (AUTO) 2.6 % (0-6); HEMATOCRIT 44.7 % (42.0-52.0); HEMOGLOBIN 14.8 g/dl (14.0-17.9); LYMPHOCYTES # (AUTO) 0.7 X10'3 (1.1-4.8); LYMPHOCYTES % (AUTO) 16.4 % (21-51); MEAN CORPUSCULAR HEMOGLOBIN 28.6 PG (27.0-31.0); MEAN CORPUSCULAR HGB CONC 33.1 g/dL (33.0-36.5); MEAN CORPUSCULAR VOLUME 86.2 FL (78-98); MEAN PLATELET VOLUME 7.5 FL (7.4-10.4); MONOCYTES # (AUTO) 0.5 X10'3 (0-0.9); MONOCYTES % (AUTO) 11.4 % (2-12); NEUTROPHILS # (AUTO) 2.8 X10'3 (1.8-7.7); NEUTROPHILS % (AUTO) 69.3 % (42-75); PLATELET COUNT 181 X10'3 (140-440); RED BLOOD COUNT 5.18 X10'6 (4.70-6.10); RED CELL DISTRIBUTION WIDTH 13.7 % (11.5-14.5)
[2020-03-25 03:45] LABS: ANION GAP 4 (8-16); BLOOD UREA NITROGEN 18 MG/DL (7-18); BUN/CREATININE RATIO 13.5 (5.4-32.0); C-REACTIVE PROTEIN 5.88 MG/DL (0.0-0.5); CALCIUM 8.6 MG/DL (8.5-10.1); CHLORIDE 108 MMOL/L (99-107); CREATININE 1.33 MG/DL (0.60-1.10); GLUCOSE 90 MG/DL (70-104); LACTATE DEHYDROGENASE 296 U/L (85-227); MAGNESIUM 1.8 MG/DL (1.5-2.4); SODIUM 142 MMOL/L (135-145); TOTAL CARBON DIOXIDE 29.9 MMOL/L (24-32); eGFR 55 ML/MIN
[2020-03-25] MEDS: normal saline 1000ml 1,000 ML IV SCH (04:24)
--- NOTE | 2020-03-25 06:07 | NUR ---
Problems reprioritized. Patient report given, questions answered & plan of care reviewed with UNA Hernandez.
--- NOTE | 2020-03-25 06:13 | NUR ---
Patient in room PCU 3008. I have received report from Belen HEART and had the opportunity to ask questions and assume patient care.
[2020-03-25] MEDS: lisinopril 5mg tablet PO SCH (08:00)
[2020-03-25] MEDS: K and/or MAG REPLACEMENT MC SCH (08:00)
[2020-03-25 08:29] VITALS: BP 137/95
[2020-03-25] MEDS: benzonatate 100mg capsule PO PRN (08:30)
[2020-03-25] MEDS: enoxaparin 40mg/0.4ml syringe SUBCUT SCH (08:30)
[2020-03-25] MEDS ORDERED: guaiFENesin/codeine oral syrup PO (10:28)
[2020-03-25] MEDS ORDERED: ALBU8.5H8 IH (10:33)
[2020-03-25 10:43] VITALS: BP 143/96
--- NOTE | 2020-03-25 11:35 | NUR ---
Per MD order by Dr. Ying, patient is stable for discharge home. Discharge packet printed and reviewed with the patient. IV removed. Tele monitor removed. Prescriptions called to pharmacy, paper prescription also sent with patient. All belongings sent with patient. Disease process, need for self isolation/quarantine discussed with patient, as well as return precautions and follow up discussed. All questions answered, patient indicated understanding. Patient escorted via wheelchair to private vehicle to go home with family.
== END 2020-03-25 11:35 | disposition home or self-care (01) | DRG 177 ==
LOC: ER 13:45 → ED HOLD 16:39 → PCU 3S 19:20
PROVIDERS: ADMIT Family Medicine; ATTEND Internal Medicine
PROC: 3E0234Z Introduction of Serum, Toxoid and Vaccine into Muscle, Percutaneous Approach (ICD-10-PCS; principal; 2020-03-24)
DX: U07.1 COVID-19 (principal); J12.89 Other viral pneumonia; N17.9 Acute kidney failure, unspecified; E66.9 Obesity, unspecified; E86.0 Dehydration; G89.29 Other chronic pain; I12.9 Hypertensive chronic kidney disease with stage 1 through stage 4 chronic kidney disease, or unspecified chronic kidney disease; Z96.642 Presence of left artificial hip joint; M54.9 Dorsalgia, unspecified; R19.7 Diarrhea, unspecified; N18.3 Chronic kidney disease, stage 3 (moderate); R09.02 Hypoxemia; Z87.442 Personal history of urinary calculi; Z90.49 Acquired absence of other specified parts of digestive tract; Z23 Encounter for immunization
CPT/HCPCS: 36415; 71045; 80048; 80053; 81001; 83605; 83615; 83735; 83880; 84145; 84484; 85025; 85379; 85610; 85730; 86140; 87040; 87081; 90732; 93005; 99285; G0378; J0456; J0690; J1650; J7030; J7120

== ENCOUNTER 2020-05-15 13:56 | Outpatient (CLI) | payer BC ==
[~2020-05-15 13:56] MED LIST changes: +ACET-1025 PO; +ALBU8.5H8 IH; -ASPI-1 PO; -BENZ-38 PO; +LISI1TAB32 PO; -NO HOME MEDS; +guaiFENesin/codeine oral syrup PO
[2020-05-15 15:04] LABS: BASOPHILS % (AUTO) 0.7 % (0-1); EOSINOPHILS # (AUTO) 0.3 X10'3 (0-0.9); EOSINOPHILS % (AUTO) 5.1 % (0-6); HEMATOCRIT 43.6 % (42.0-52.0); HEMOGLOBIN 14.6 g/dl (14.0-17.9); LYMPHOCYTES # (AUTO) 1.1 X10'3 (1.1-4.8); LYMPHOCYTES % (AUTO) 18.4 % (21-51); MEAN CORPUSCULAR HGB CONC 33.5 g/dL (33.0-36.5); MEAN CORPUSCULAR VOLUME 86.6 FL (78-98); MEAN PLATELET VOLUME 7.8 FL (7.4-10.4); MONOCYTES # (AUTO) 0.6 X10'3 (0-0.9); MONOCYTES % (AUTO) 9.8 % (2-12); NEUTROPHILS # (AUTO) 4.1 X10'3 (1.8-7.7); PLATELET COUNT 216 X10'3 (140-440); RED BLOOD COUNT 5.04 X10'6 (4.70-6.10); RED CELL DISTRIBUTION WIDTH 14.6 % (11.5-14.5); WHITE BLOOD COUNT 6.2 X10'3 (4.5-11.0)
[2020-05-15 15:16] LABS: CLARITY,URINE CLEAR (Clear); COLOR,URINE YELLOW (Yellow); GLUCOSE, URINE NEGATIVE (Neg); KETONES,URINE NEGATIVE (Neg); LEUKOCYTE ESTERASE ,URINE NEGATIVE (Neg); NITRITES, URINE NEGATIVE (Neg); OCCULT BLOOD,URINE NEGATIVE (Neg); PH,URINE 5.5 (4.8-8.0); PROTEIN,URINE NEGATIVE (Neg); UROBILINOGEN,URINE 0.2 E.U/dL (0.2-1.0)
[2020-05-15 15:18] LABS: UA COLLECTION TYPE CLN CATCH MIDSTREAM
[2020-05-15 15:35] LABS: ALANINE AMINOTRANSFERASE 46 U/L (12-78); ALBUMIN 3.7 G/DL (3.4-5.0); ALBUMIN/GLOBULIN RATIO 1.1 (1.1-1.5); ALKALINE PHOSPHATASE 77 IU/L (46-116); ANION GAP 10 (8-16); ASPARTATE AMINO TRANSFERASE 22 U/L (10-37); BILIRUBIN,TOTAL 0.2 MG/DL (0.1-1.0); BLOOD UREA NITROGEN 19 MG/DL (7-18); BUN/CREATININE RATIO 12.6 (5.4-32.0); C-REACTIVE PROTEIN 0.53 MG/DL (0.0-0.5); CALCIUM 9.1 MG/DL (8.5-10.1); CHLORIDE 107 MMOL/L (99-107); CHOL/HDL RATIO 5.2 (0.00-4.99); CHOLESTEROL 194 MG/DL (0-200); CREATININE 1.51 MG/DL (0.60-1.10); GLUCOSE 103 MG/DL (70-104); HDL CHOLESTEROL 37 MG/DL (35-60); LDL CHOLESTEROL 121 MG/DL (50-100); POTASSIUM 3.6 MMOL/L (3.5-5.1); SODIUM 142 MMOL/L (135-145); TOTAL CARBON DIOXIDE 24.9 MMOL/L (24-32); TOTAL PROTEIN 7.2 G/DL (6.4-8.2); TRIGLYCERIDES 202 MG/DL (20-135); eGFR 47 ML/MIN
[2020-05-15 15:55] LABS: % IRON SATURATION 24 % (11-46); IRON 71 UG/DL (53-167); TOTAL IRON BINDING CAPACITY 297 UG/DL (259-388)
[2020-05-17 16:28] LABS: HEPATITIS C ANTIBODY <0.1 s/co ratio (0.0-0.9)
[2020-05-18 01:50] LABS: MICROALB/CRT, RATIO 4 mg/g creat (0-29)
== END 2020-05-15 23:59 | disposition home or self-care (01) ==
LOC: LAB 13:56
PROVIDERS: ATTEND Family Medicine
DX: Z00.00 Encounter for general adult medical examination without abnormal findings (principal); I12.9 Hypertensive chronic kidney disease with stage 1 through stage 4 chronic kidney disease, or unspecified chronic kidney disease; N18.1 Chronic kidney disease, stage 1; M16.10 Unilateral primary osteoarthritis, unspecified hip; J80 Acute respiratory distress syndrome; R53.83 Other fatigue; A08.39 Other viral enteritis; Z91.09 Other allergy status, other than to drugs and biological substances; Z87.442 Personal history of urinary calculi; E78.5 Hyperlipidemia, unspecified
CPT/HCPCS: 36415; 80053; 80061; 81003; 82043; 82306; 82330; 82570; 82607; 82746; 83540; 83550; 83880; 83970; 84402; 84403; 84439; 84443; 85025; 85651; 86140; 86803

== ENCOUNTER 2020-09-26 15:11 | Outpatient (CLI) | payer BC | END 2020-09-26 23:59 | disposition home or self-care (01) | LOC: LAB 15:11 | PROVIDERS: ATTEND Internal Medicine Infectious Disease | DX: U07.1 COVID-19 (principal) | CPT/HCPCS: 36415; 86769 ==

== ENCOUNTER 2021-01-19 08:27 | Outpatient (CLI) | payer BC | END 2021-01-19 23:59 | disposition home or self-care (01) | LOC: RAD 08:27 | PROVIDERS: ATTEND Orthopaedic Surgery | DX: M75.101 Unspecified rotator cuff tear or rupture of right shoulder, not specified as traumatic (principal); M25.511 Pain in right shoulder | CPT/HCPCS: 73221 ==

== ENCOUNTER 2021-04-28 13:54 | Emergency (ER) | payer BC ==
[~2021-04-28] VITALS: Ht 182.9 cm; Wt 107.0 kg
[2021-04-28 14:27] VITALS: BP 161/102
== END 2021-04-28 15:49 | disposition home or self-care (01) ==
LOC: ER 13:55 → EEVIPCON 13:55 → ER 15:49
DX: S46.292A Other injury of muscle, fascia and tendon of other parts of biceps, left arm, initial encounter (principal); I10 Essential (primary) hypertension; Z87.442 Personal history of urinary calculi; X58.XXXA Exposure to other specified factors, initial encounter; Y93.89 Activity, other specified; Y92.89 Other specified places as the place of occurrence of the external cause; Y99.8 Other external cause status
CPT/HCPCS: 73080; 99283

== ENCOUNTER → 2021-05-04 | Day surgery (SDC) | payer BC ==
[~2021-05-04] VITALS: Ht 182.9 cm; Wt 109.2 kg
[~2021-05-04] MED LIST changes: +ROPIVAcaine 0.5% (5mg/ml) 30ml vial ONE; +cefazolin/dext.iso 2gm/100ml 100 ML IV ONE; +cloNIDine hcl/PF 100mcg/ml inj ONE; +ePHEDrine 50MG/ML INJ. ONE; +enalaprilat dihydrate 2.5mg/2ml vial IV PRN; +famotidine 20mg tablet PO ONE; +fentaNYL/PF 50MCG/1 ML 2ML syringe ONE; +labetalol 20mg/4ml (5mg/ml) syringe IV PRN; +meperidine/PF 25mg/ml syringe IV PRN; +midazolam 1 mg/ML 2ml injection ONE; +morphine 2 MG/ML inj. syringe IV PRN; +morphine 4 MG/ML inj SYRINge IV PRN; +ondansetron/PF 4mg/2ml inj IV PRN; +proCHLORperazine 10 MG/2 ml inj IV PRN; +propofol inj 20 ML IV ONE; +ringers solution, lacted 1,000 ML IV SCH; +sevoflurane 250ml liquid IH ONE
[2021-05-04 12:51] LABS: BASOPHILS % (AUTO) 0.8 % (0-1); EOSINOPHILS # (AUTO) 0.3 X10'3 (0-0.9); LYMPHOCYTES # (AUTO) 1.1 X10'3 (1.1-4.8); LYMPHOCYTES % (AUTO) 18.2 % (21-51); MEAN CORPUSCULAR HEMOGLOBIN 29.3 PG (27.0-31.0); MEAN CORPUSCULAR HGB CONC 33.7 g/dL (33.0-36.5); MEAN CORPUSCULAR VOLUME 86.7 FL (78-98); MEAN PLATELET VOLUME 7.3 FL (7.4-10.4); MONOCYTES # (AUTO) 0.6 X10'3 (0-0.9); NEUTROPHILS # (AUTO) 3.7 X10'3 (1.8-7.7); PRE OP HEMATOCRIT 48.6 % (42.0-52.0); PRE OP HEMOGLOBIN 16.4 g/dL (14.0-17.9); PRE OP PLATELET COUNT 238 X10'3 (140-440); RED BLOOD COUNT 5.61 X10'6 (4.70-6.10); RED CELL DISTRIBUTION WIDTH 13.7 % (11.5-14.5)
[2021-05-04 12:56] VITALS: BP 165/108
[2021-05-04 13:03] LABS: ALBUMIN 3.9 G/DL (3.4-5.0); ALBUMIN/GLOBULIN RATIO 1.1 (1.1-1.5); ALKALINE PHOSPHATASE 108 IU/L (46-116); BLOOD UREA NITROGEN 19 MG/DL (7-18); BUN/CREATININE RATIO 14.8 (5.4-32.0); CHLORIDE 105 MMOL/L (99-107); CREATININE 1.28 MG/DL (0.60-1.10); PRE OP ALT 40 U/L (30-65); PRE OP ANION GAP 9 (8-16); PRE OP AST 19 U/L (10-37); PRE OP BILIRUB, TOTAL 0.5 MG/DL (0.0-1.0); PRE OP GLUCOSE 87 MG/DL (70-104); PRE OP POTASSIUM 4.1 MMOL/L (3.4-5.1); PRE OP SODIUM 141 MMOL/L (135-145); TOTAL CARBON DIOXIDE 27.4 MMOL/L (24-32); TOTAL PROTEIN 7.3 G/DL (6.4-8.2); eGFR 57 ML/MIN
[2021-05-04 17:04] VITALS: BP 138/97
--- NOTE | 2021-05-04 17:04 | NUR ---
RECEIVED REPORT ASSUME CARE PT AROUSABLE TO NAME VSS NO DISTRESS. DRESSING TO LEFT ARM INTACT +CMS TO LEFT HAND AND FINGERS. CONT TO MONITOR Addendum: 05/04/21 at 1714 by Ghazala Mccullough RN Amended: Links added.
[2021-05-04 17:14] VITALS: BP 152/99
== END | disposition home or self-care (01) ==
LOC: PAS 12:02
PROVIDERS: ATTEND Orthopaedic Surgery
DX: S46.212A Strain of muscle, fascia and tendon of other parts of biceps, left arm, initial encounter (principal); I10 Essential (primary) hypertension; G89.18 Other acute postprocedural pain; E66.9 Obesity, unspecified; Z68.32 Body mass index [BMI] 32.0-32.9, adult; Z96.649 Presence of unspecified artificial hip joint; X50.0XXA Overexertion from strenuous movement or load, initial encounter; Y93.89 Activity, other specified; Y92.89 Other specified places as the place of occurrence of the external cause; Y99.8 Other external cause status
CPT/HCPCS: 24342; 36415; 64415; 76942; 80053; 85025; 93005; C1713; J0735; J2250; J2704; J3010; A4618; A6449; A7000; J2795

== ENCOUNTER 2021-11-07 07:27 | Outpatient (CLI) | payer BC ==
[~2021-11-07 07:27] MED LIST changes: -ACET-1025 PO; -ALBU8.5H8 IH; -LISI1TAB32 PO; +LISI1TAB49 PO; -ROPIVAcaine 0.5% (5mg/ml) 30ml vial ONE; -cefazolin/dext.iso 2gm/100ml 100 ML IV ONE; -cloNIDine hcl/PF 100mcg/ml inj ONE; -ePHEDrine 50MG/ML INJ. ONE; -enalaprilat dihydrate 2.5mg/2ml vial IV PRN; -famotidine 20mg tablet PO ONE; -fentaNYL/PF 50MCG/1 ML 2ML syringe ONE; -guaiFENesin/codeine oral syrup PO; -labetalol 20mg/4ml (5mg/ml) syringe IV PRN; -meperidine/PF 25mg/ml syringe IV PRN; -midazolam 1 mg/ML 2ml injection ONE; -morphine 2 MG/ML inj. syringe IV PRN; -morphine 4 MG/ML inj SYRINge IV PRN; -ondansetron/PF 4mg/2ml inj IV PRN; -proCHLORperazine 10 MG/2 ml inj IV PRN; -propofol inj 20 ML IV ONE; -ringers solution, lacted 1,000 ML IV SCH; -sevoflurane 250ml liquid IH ONE
[2021-11-07 08:15] LABS: BASOPHILS % (AUTO) 0.6 % (0-1); EOSINOPHILS # (AUTO) 0.4 X10'3 (0-0.9); EOSINOPHILS % (AUTO) 5.8 % (0-6); HEMATOCRIT 44.6 % (42.0-52.0); HEMOGLOBIN 15.3 g/dl (14.0-17.9); LYMPHOCYTES # (AUTO) 1.1 X10'3 (1.1-4.8); LYMPHOCYTES % (AUTO) 17.2 % (21-51); MEAN CORPUSCULAR HEMOGLOBIN 29.7 PG (27.0-31.0); MEAN CORPUSCULAR HGB CONC 34.2 g/dL (33.0-36.5); MEAN CORPUSCULAR VOLUME 86.8 FL (78-98); MEAN PLATELET VOLUME 7.3 FL (7.4-10.4); MONOCYTES # (AUTO) 0.6 X10'3 (0-0.9); MONOCYTES % (AUTO) 10.3 % (2-12); NEUTROPHILS # (AUTO) 4.1 X10'3 (1.8-7.7); NEUTROPHILS % (AUTO) 66.1 % (42-75); PLATELET COUNT 202 X10'3 (140-440); RED BLOOD COUNT 5.15 X10'6 (4.70-6.10); WHITE BLOOD COUNT 6.2 X10'3 (4.5-11.0)
[2021-11-07 08:21] LABS: CLARITY,URINE CLEAR (Clear); COLOR,URINE YELLOW (Yellow); GLUCOSE, URINE NEGATIVE (Neg); KETONES,URINE NEGATIVE (Neg); LEUKOCYTE ESTERASE ,URINE NEGATIVE (Neg); NITRITES, URINE NEGATIVE (Neg); OCCULT BLOOD,URINE TRACE-INTACT (Neg); PH,URINE 5.5 (4.8-8.0); PROTEIN,URINE NEGATIVE (Neg); UROBILINOGEN,URINE 0.2 E.U/dL (0.2-1.0)
[2021-11-07 08:26] LABS: UA COLLECTION TYPE VOIDED
[2021-11-07 08:28] LABS: BACTERIA,URINE FEW /HPF (Neg); SQUAMOUS EPITHELIAL CELL,UR NONE SEEN /LPF (FEW)
[2021-11-07 08:29] LABS: RBC,URINE 0-2 /HPF (0-2); WBC,URINE 0-4 /HPF (0-4)
[2021-11-07 08:47] LABS: % IRON SATURATION 21 % (11-46); IRON 60 UG/DL (53-167); TOTAL IRON BINDING CAPACITY 285 UG/DL (259-388)
[2021-11-07 08:52] LABS: IONIZED CALCIUM SERUM 1.29 MMOL/L (1.03-1.32)
[2021-11-07 08:56] LABS: ALANINE AMINOTRANSFERASE 51 U/L (12-78); ALBUMIN 3.9 G/DL (3.4-5.0); ALBUMIN/GLOBULIN RATIO 1.4 (1.1-1.5); ALKALINE PHOSPHATASE 107 IU/L (46-116); ANION GAP 6 (8-16); ASPARTATE AMINO TRANSFERASE 30 U/L (10-37); BILIRUBIN,TOTAL 0.4 MG/DL (0.1-1.0); BLOOD UREA NITROGEN 15 MG/DL (7-18); BUN/CREATININE RATIO 11.5 (5.4-32.0); C-REACTIVE PROTEIN 0.77 MG/DL (0.0-0.5); CALCIUM 8.6 MG/DL (8.5-10.1); CHLORIDE 106 MMOL/L (99-107); CHOL/HDL RATIO 3.7 (0.00-4.99); CHOLESTEROL 164 MG/DL (0-200); GLUCOSE 90 MG/DL (70-104); HDL CHOLESTEROL 44 MG/DL (35-60); LDL CHOLESTEROL 98 MG/DL (50-100); PHOSPHORUS 3.7 MG/DL (2.3-4.5); POTASSIUM 4.1 MMOL/L (3.5-5.1); SODIUM 141 MMOL/L (135-145); TOTAL CARBON DIOXIDE 29.4 MMOL/L (24-32); TOTAL PROTEIN 6.7 G/DL (6.4-8.2); TRIGLYCERIDES 103 MG/DL (20-135); eGFR 56 ML/MIN
[2021-11-08 10:17] LABS: HEPATITIS C ANTIBODY <0.1 s/co ratio (0.0-0.9); MICROALB/CRT, RATIO 21 mg/g creat (0-29)
== END 2021-11-07 23:59 | disposition home or self-care (01) ==
LOC: LAB 07:27
PROVIDERS: ATTEND Family Medicine
DX: I12.9 Hypertensive chronic kidney disease with stage 1 through stage 4 chronic kidney disease, or unspecified chronic kidney disease (principal); N18.30 Chronic kidney disease, stage 3 unspecified; R53.83 Other fatigue; E83.51 Hypocalcemia; K21.9 Gastro-esophageal reflux disease without esophagitis; A08.39 Other viral enteritis; E78.5 Hyperlipidemia, unspecified; J80 Acute respiratory distress syndrome; R73.02 Impaired glucose tolerance (oral); E29.8 Other testicular dysfunction; M16.10 Unilateral primary osteoarthritis, unspecified hip; Z91.89 Other specified personal risk factors, not elsewhere classified; Z91.09 Other allergy status, other than to drugs and biological substances
CPT/HCPCS: 36415; 80053; 80061; 81001; 82043; 82306; 82330; 82570; 82607; 82746; 83540; 83550; 83970; 84100; 84402; 84403; 84439; 84443; 84550; 85025; 85651; 86140; 86803; 87522

== ENCOUNTER 2023-01-15 12:27 | Outpatient (CLI) | payer BC ==
[2023-01-15 13:03] LABS: CLARITY,URINE CLEAR (Clear); COLOR,URINE YELLOW (Yellow); GLUCOSE, URINE NEGATIVE (Neg); KETONES,URINE NEGATIVE (Neg); LEUKOCYTE ESTERASE ,URINE NEGATIVE (Neg); NITRITES, URINE NEGATIVE (Neg); OCCULT BLOOD,URINE TRACE-INTACT (Neg); PH,URINE 5.5 (4.8-8.0); PROTEIN,URINE NEGATIVE (Neg); UROBILINOGEN,URINE 0.2 E.U/dL (0.2-1.0)
[2023-01-15 13:10] LABS: BASOPHILS % (AUTO) 0.6 % (0-1); EOSINOPHILS # (AUTO) 0.3 X10'3 (0-0.9); EOSINOPHILS % (AUTO) 4.7 % (0-6); HEMOGLOBIN 15.4 g/dl (14.0-17.9); LYMPHOCYTES % (AUTO) 13.5 % (21-51); MEAN CORPUSCULAR HEMOGLOBIN 29.2 PG (27.0-31.0); MEAN CORPUSCULAR HGB CONC 33.5 g/dL (33.0-36.5); MEAN CORPUSCULAR VOLUME 87.2 FL (78-98); MEAN PLATELET VOLUME 7.1 FL (7.4-10.4); MONOCYTES # (AUTO) 0.8 X10'3 (0-0.9); MONOCYTES % (AUTO) 10.3 % (2-12); NEUTROPHILS # (AUTO) 5.2 X10'3 (1.8-7.7); NEUTROPHILS % (AUTO) 70.9 % (42-75); PLATELET COUNT 230 X10'3 (140-440); RED BLOOD COUNT 5.28 X10'6 (4.70-6.10); RED CELL DISTRIBUTION WIDTH 14.5 % (11.5-14.5); WHITE BLOOD COUNT 7.4 X10'3 (4.5-11.0)
[2023-01-15 13:32] LABS: UA COLLECTION TYPE CLN CATCH MIDSTREAM
[2023-01-15 13:34] LABS: ALANINE AMINOTRANSFERASE 47 U/L (12-78); ALBUMIN 3.5 G/DL (3.4-5.0); ALBUMIN/GLOBULIN RATIO 1.1 (1.1-1.5); ALKALINE PHOSPHATASE 95 IU/L (46-116); ANION GAP 7 (8-16); ASPARTATE AMINO TRANSFERASE 22 U/L (10-37); BILIRUBIN,TOTAL 0.3 MG/DL (0.1-1.0); BLOOD UREA NITROGEN 22 MG/DL (7-18); BUN/CREATININE RATIO 18.2 (10.0-20.0); CALCIUM 8.6 MG/DL (8.5-10.1); CHLORIDE 107 MMOL/L (99-107); CHOL/HDL RATIO 5.2 (0.00-4.99); CHOLESTEROL 196 MG/DL (0-200); CREATININE 1.21 MG/DL (0.60-1.10); GLUCOSE 90 MG/DL (70-104); HDL CHOLESTEROL 38 MG/DL (35-60); LDL CHOLESTEROL 115 MG/DL (50-100); POTASSIUM 4.2 MMOL/L (3.5-5.1); SODIUM 140 MMOL/L (135-145); TOTAL CARBON DIOXIDE 25.9 MMOL/L (24-32); TOTAL PROTEIN 6.6 G/DL (6.4-8.2); TRIGLYCERIDES 389 MG/DL (20-135); eGFR 61 ML/MIN
[2023-01-15 13:51] LABS: RBC,URINE 0-2 /HPF (0-2); WBC,URINE 0-4 /HPF (0-4)
[2023-01-15 13:52] LABS: BACTERIA,URINE FEW /HPF (Neg); MUCUS STRANDS FEW /LPF (Neg); SQUAMOUS EPITHELIAL CELL,UR FEW /LPF (FEW)
== END 2023-01-15 23:59 | disposition home or self-care (01) ==
LOC: LAB 12:27
PROVIDERS: ATTEND Nurse Practitioner Family
DX: Z00.00 Encounter for general adult medical examination without abnormal findings (principal); I10 Essential (primary) hypertension
CPT/HCPCS: 36415; 80053; 80061; 81001; 84439; 84443; 85025; 85610

== ENCOUNTER 2023-07-01 11:53 | Outpatient (CLI) | payer BC | END 2023-07-01 23:59 | disposition home or self-care (01) | LOC: RAD 11:53 | PROVIDERS: ATTEND Family Medicine | DX: M65.872 Other synovitis and tenosynovitis, left ankle and foot (principal); M76.62 Achilles tendinitis, left leg; R60.0 Localized edema; M72.2 Plantar fascial fibromatosis; M25.572 Pain in left ankle and joints of left foot | CPT/HCPCS: 73718; 73721 ==

== ENCOUNTER 2023-09-25 05:29 | Inpatient (IN) | payer BC ==
[2023-09-19 14:51] LABS: BASOPHILS % (AUTO) 0.8 % (0-1); EOSINOPHILS # (AUTO) 0.3 X10'3 (0-0.9); EOSINOPHILS % (AUTO) 4.6 % (0-6); LYMPHOCYTES % (AUTO) 16.1 % (21-51); MEAN CORPUSCULAR HEMOGLOBIN 28.9 PG (27.0-31.0); MEAN CORPUSCULAR HGB CONC 33.6 g/dL (33.0-36.5); MEAN PLATELET VOLUME 7.6 FL (7.4-10.4); MONOCYTES # (AUTO) 0.7 X10'3 (0-0.9); NEUTROPHILS # (AUTO) 4.1 X10'3 (1.8-7.7); NEUTROPHILS % (AUTO) 67.5 % (42-75); PRE OP HEMATOCRIT 49.2 % (42.0-52.0); PRE OP HEMOGLOBIN 16.5 g/dL (14.0-17.9); PRE OP PLATELET COUNT 238 X10'3 (140-440); PRE OP WHITE BLOOD COUNT 6.1 10'3 (4.8-10.8); RED BLOOD COUNT 5.72 X10'6 (4.70-6.10)
[2023-09-19 15:07] LABS: ALBUMIN 4.1 G/DL (3.4-5.0); ALBUMIN/GLOBULIN RATIO 1.1 (1.1-1.5); ALKALINE PHOSPHATASE 117 IU/L (46-116); BLOOD UREA NITROGEN 19 MG/DL (7-18); BUN/CREATININE RATIO 12.4 (10.0-20.0); CALCIUM 9.2 MG/DL (8.5-10.1); CHLORIDE 103 MMOL/L (99-107); CREATININE 1.53 MG/DL (0.60-1.10); PRE OP ALT 39 U/L (30-65); PRE OP ANION GAP 7 (8-16); PRE OP AST 33 U/L (10-37); PRE OP BILIRUB, TOTAL 0.5 MG/DL (0.0-1.0); PRE OP GLUCOSE 87 MG/DL (70-104); PRE OP POTASSIUM 3.8 MMOL/L (3.4-5.1); PRE OP SODIUM 140 MMOL/L (135-145); TOTAL CARBON DIOXIDE 30.1 MMOL/L (24-32); TOTAL PROTEIN 7.7 G/DL (6.4-8.2); eGFR 46 ML/MIN
[2023-09-25] VITALS (38 sets, daily range): BP systolic 100–167; BP diastolic 64–106; PULSE 57–92; RESP 8–20; TEMP 97.3–98.2; O2SAT 93–100
[~2023-09-25] VITALS: Ht 182.9 cm; Wt 110.9 kg
[2023-09-25] MEDS ORDERED: famotidine 20mg tablet PO ONE (05:30)
[2023-09-25] MEDS ORDERED: vancomycin 1,500 MG in NS 300ml IV soln IV ONE (05:30)
[2023-09-25] MEDS ORDERED: cefazolin 2gm/D5W 100mL 100 ML IV ONE (05:30)
[2023-09-25] MEDS ORDERED: ATOR10TA70 PO (06:20)
[2023-09-25] MEDS: ringers solution, lacted 1,000 ML IV SCH ×2 (06:20→15:05)
[2023-09-25] MEDS ORDERED: HYDROmorphone 1 mg/ml syringe IV PRN (06:45)
[2023-09-25] MEDS ORDERED: naloxone 0.4 mg/ml inj IV PRN (06:45)
[2023-09-25] MEDS ORDERED: magnesium hydroxide 30ml (MOM) UD suspension PO PRN (06:45)
[2023-09-25] MEDS ORDERED: diphenhydrAMINE 25mg capsule PO PRN ×2 (06:45)
[2023-09-25] MEDS ORDERED: HYDROcodone/acetaminophen 10/325mg tab PO PRN (06:45)
[2023-09-25] MEDS ORDERED: HYDROmorphone inj. 0.5 MG/0.5 ML DISP.SYRIN IV PRN (06:45)
[2023-09-25] MEDS ORDERED: ondansetron/PF 4mg/2ml inj IV PRN ×2 (06:45→08:30)
[2023-09-25] MEDS ORDERED: bisacodyl 10mg suppository rectal RC PRN (06:45)
[2023-09-25] MEDS ORDERED: acetaminophen 325mg tablet PO PRN (06:45)
[2023-09-25] MEDS ORDERED: ROPIVAcaine 0.5% (5mg/ml) 30ml vial ONE (07:00)
[2023-09-25] MEDS ORDERED: vancomycin 1,000mg inj ONE (07:00)
[2023-09-25] MEDS ORDERED: ketorolac trometh. 30mg/ml inj. ONE (07:00)
[2023-09-25] MEDS ORDERED: epiNEPHrine 1 mg/ml inj ONE (07:00)
[2023-09-25] MEDS ORDERED: fentaNYL/PF 50MCG/1 ML 2ML syringe ONE (07:16)
[2023-09-25] MEDS ORDERED: MIDAZolam 1mg/ml 10ml vial ONE (07:16)
[2023-09-25] MEDS ORDERED: BUPIVAcaine/PF 7.5mg/ml (0.75%) 10ml vial ONE (07:43)
[2023-09-25] MEDS ORDERED: BUPIVACAINE/MELOXICAM 14 ML VIAL IL ONE ×2 (07:53→08:35)
[2023-09-25] MEDS ORDERED: HYDROchlorothiazide 12.5mg capsule PO SCH (08:00)
[2023-09-25] MEDS ORDERED: lisinopril 10 MG tablet PO SCH (08:00)
[2023-09-25] MEDS ORDERED: ROPIVAcaine 0.5% (5mg/ml) 30ml vial IJ ONE (08:28)
[2023-09-25] MEDS ORDERED: ketorolac trometh. 30mg/ml inj. IM ONE (08:29)
[2023-09-25] MEDS ORDERED: epiNEPHrine 1 MG/ML 1 ml ampule **BRONCH ONLY SQ ONE (08:30)
[2023-09-25] MEDS ORDERED: morphine 2 MG/ML inj. syringe IV PRN (08:30)
[2023-09-25] MEDS ORDERED: meperidine/PF 25mg/ml syringe IV PRN ×3 (08:30)
[2023-09-25] MEDS ORDERED: proCHLORperazine 10 MG/2 ml inj IV PRN (08:30)
[2023-09-25] MEDS ORDERED: labetalol 20mg/4ml (5mg/ml) syringe IV PRN (08:30)
[2023-09-25] MEDS ORDERED: ringers solution, lacted 1,000 ML IV SCH (08:30)
[2023-09-25] MEDS ORDERED: morphine 4 MG/ML inj SYRINge IV PRN (08:30)
[2023-09-25] MEDS ORDERED: enalaprilat dihydrate 2.5mg/2ml vial IV PRN (08:30)
[2023-09-25] MEDS ORDERED: diphenhydrAMINE 50 mg/ml inj ONE (08:41)
[2023-09-25] MEDS: potassium cl 20mEq in 1/2 NS 1,000 ML IV SCH ×3 (10:43→20:24)
[2023-09-25] MEDS ORDERED: tranexamic acid inj. 1,000 MG in normal saline 100ml IV soln 90 ML IV ONE (11:30)
[2023-09-25] MEDS: HYDROcodone/acetaminophen 10/325mg tab PO PRN ×2 (15:02→22:48)
[2023-09-25] MEDS: cefazolin 2gm/D5W 100mL 100 ML IV SCH ×2 (16:26→23:53)
[2023-09-25] MEDS ORDERED: VANCOMYCIN 1,500MG inj. 1,500 MG in normal saline 500ml IV soln 300 ML IV SCH (20:00)
[2023-09-25] MEDS: ascorbic acid 500mg tablet PO SCH (20:25)
[2023-09-25] MEDS: gabapentin 300mg capsule PO SCH (20:26)
[2023-09-25] MEDS ORDERED: sennosides 8.6mg tablet PO SCH (21:00)
[2023-09-26 02:00] VITALS: BP 125/74; PULSE 47; RESP 22; TEMP 97.6; O2SAT 96
[2023-09-26] MEDS: potassium cl 20mEq in 1/2 NS 1,000 ML IV SCH (04:30)
[2023-09-26] MEDS: HYDROcodone/acetaminophen 10/325mg tab PO PRN (05:46)
[2023-09-26 06:00] VITALS: BP 149/92; PULSE 71; RESP 18; TEMP 97.5; O2SAT 97
[2023-09-26 06:59] LABS: BASOPHILS % (AUTO) 0.4 % (0-1); EOSINOPHILS # (AUTO) 0.1 X10'3 (0-0.9); EOSINOPHILS % (AUTO) 0.7 % (0-6); HEMATOCRIT 40.9 % (42.0-52.0); HEMOGLOBIN 13.6 g/dl (14.0-17.9); LYMPHOCYTES # (AUTO) 0.9 X10'3 (1.1-4.8); LYMPHOCYTES % (AUTO) 8.7 % (21-51); MEAN CORPUSCULAR HEMOGLOBIN 28.9 PG (27.0-31.0); MEAN CORPUSCULAR HGB CONC 33.4 g/dL (33.0-36.5); MEAN CORPUSCULAR VOLUME 86.5 FL (78-98); MEAN PLATELET VOLUME 7.8 FL (7.4-10.4); MONOCYTES # (AUTO) 0.9 X10'3 (0-0.9); MONOCYTES % (AUTO) 9.5 % (2-12); NEUTROPHILS % (AUTO) 80.7 % (42-75); PLATELET COUNT 181 X10'3 (140-440); RED BLOOD COUNT 4.72 X10'6 (4.70-6.10); RED CELL DISTRIBUTION WIDTH 14.2 % (11.5-14.5); WHITE BLOOD COUNT 9.9 X10'3 (4.5-11.0)
[2023-09-26 07:00] VITALS: RESP 18; O2SAT 97
[2023-09-26 07:04] LABS: ANION GAP 9 (8-16); CHLORIDE 104 MMOL/L (99-107); SODIUM 138 MMOL/L (135-145)
[2023-09-26 07:22] VITALS: BP_SYST 149; PULSE 71
[2023-09-26] MEDS: ascorbic acid 500mg tablet PO SCH (07:22)
[2023-09-26] MEDS: gabapentin 300mg capsule PO SCH (07:22)
[2023-09-26] MEDS ORDERED: HYDROchlorothiazide 12.5mg capsule PO SCH (08:00)
[2023-09-26] MEDS ORDERED: lisinopril 10 MG tablet PO SCH (08:00)
[2023-09-26] MEDS ORDERED: atorvastatin 10mg tablet PO SCH (08:00)
[2023-09-26] MEDS ORDERED: multivitamins, therapeutics tablet PO SCH (08:00)
[2023-09-26] MEDS ORDERED: aspirin 325mg tablet PO SCH (08:30)
[2023-09-26] MEDS ORDERED: celeCOXIB 100mg capsule PO SCH (20:00)
== END 2023-09-26 10:15 | disposition home or self-care (01) | DRG 470 ==
LOC: PAS 05:29 → ORTHO 4S 14:14
PROVIDERS: ADMIT Orthopaedic Surgery; ATTEND Orthopaedic Surgery
PROC: 3E0T3BZ Introduction of Anesthetic Agent into Peripheral Nerves and Plexi, Percutaneous Approach (ICD-10-PCS; 2023-09-25)
PROC: 0SR906Z Replacement of Right Hip Joint with Oxidized Zirconium on Polyethylene Synthetic Substitute, Open Approach (ICD-10-PCS; principal; 2023-09-25 07:13)
DX: M16.11 Unilateral primary osteoarthritis, right hip (principal)
CPT/HCPCS: Z7506; Z7508; 36415; 72170; 80051; 80053; 82948; 85025; 86885; 86900; 86901; 87081; 97116; 97161; 97530; A7000; A9272; C1776; G0378; J0171; J0690; J1200; J1885; J2250; J2795; J3010; J3370; J3480; J3490; J7120; L1832

== ENCOUNTER 2024-01-14 08:53 | Emergency (ER) | payer BC ==
[~2024-01-14] VITALS: Ht 182.9 cm; Wt 109.1 kg
[~2024-01-14 08:53] MED LIST changes: +ATOR10TA70 PO
[2024-01-14 09:01] VITALS: BP 145/81; PULSE 77; RESP 18; TEMP 97.8; O2SAT 98
== END 2024-01-14 11:25 | disposition home or self-care (01) ==
LOC: MERGE 08:54 → ER 08:54
DX: S59.901A Unspecified injury of right elbow, initial encounter (principal); X58.XXXA Exposure to other specified factors, initial encounter; Y93.89 Activity, other specified; Y92.89 Other specified places as the place of occurrence of the external cause; Y99.8 Other external cause status
CPT/HCPCS: 73080; 99283

== ENCOUNTER 2024-02-27 09:59 | Outpatient (CLI) | payer BC | END 2024-02-27 23:59 | disposition home or self-care (01) | LOC: MRI 09:59 | PROVIDERS: ATTEND Family Medicine | DX: M25.572 Pain in left ankle and joints of left foot (principal); M67.472 Ganglion, left ankle and foot; M25.472 Effusion, left ankle; M65.9 Synovitis and tenosynovitis, unspecified; M77.32 Calcaneal spur, left foot | CPT/HCPCS: 73721 ==

== ENCOUNTER 2024-09-28 14:59 | Outpatient (CLI) | payer BC ==
[2024-09-28 15:42] LABS: BASOPHILS % (AUTO) 0.7 % (0-1); EOSINOPHILS # (AUTO) 0.4 X10'3 (0-0.9); EOSINOPHILS % (AUTO) 5.4 % (0-6); HEMATOCRIT 43.9 % (42.0-52.0); HEMOGLOBIN 14.9 g/dl (14.0-17.9); LYMPHOCYTES # (AUTO) 1.1 X10'3 (1.1-4.8); LYMPHOCYTES % (AUTO) 16.6 % (21-51); MEAN CORPUSCULAR HEMOGLOBIN 29.5 PG (27.0-31.0); MEAN CORPUSCULAR VOLUME 86.9 FL (78-98); MEAN PLATELET VOLUME 7.5 FL (7.4-10.4); MONOCYTES # (AUTO) 0.7 X10'3 (0-0.9); MONOCYTES % (AUTO) 10.9 % (2-12); NEUTROPHILS # (AUTO) 4.4 X10'3 (1.8-7.7); NEUTROPHILS % (AUTO) 66.4 % (42-75); PLATELET COUNT 237 X10'3 (140-440); RED BLOOD COUNT 5.05 X10'6 (4.70-6.10); RED CELL DISTRIBUTION WIDTH 14.9 % (11.5-14.5); WHITE BLOOD COUNT 6.6 X10'3 (4.5-11.0)
[2024-09-28 16:05] LABS: ALANINE AMINOTRANSFERASE 46 U/L (12-78); ALBUMIN 3.5 G/DL (3.4-5.0); ALKALINE PHOSPHATASE 97 IU/L (46-116); ANION GAP 9 (8-16); ASPARTATE AMINO TRANSFERASE 30 U/L (10-37); BILIRUBIN,TOTAL 0.4 MG/DL (0.1-1.0); BLOOD UREA NITROGEN 22 MG/DL (7-18); BUN/CREATININE RATIO 13.8 (10.0-20.0); CALCIUM 8.7 MG/DL (8.5-10.1); CHLORIDE 108 MMOL/L (99-107); CHOL/HDL RATIO 3.7 (0.00-4.99); CHOLESTEROL 148 MG/DL (0-200); FREE T4 (FREE THYROXINE) 0.85 NG/DL (0.73-1.40); GLUCOSE 85 MG/DL (70-104); HDL CHOLESTEROL 40 MG/DL (35-60); LDL CHOLESTEROL 81 MG/DL (50-100); POTASSIUM 3.8 MMOL/L (3.5-5.1); SODIUM 145 MMOL/L (135-145); THYROID STIMULATING HORMONE 2.94 ulU/ml (0.34-4.50); TOTAL CARBON DIOXIDE 27.8 MMOL/L (24-32); TOTAL PROTEIN 7.1 G/DL (6.4-8.2); TRIGLYCERIDES 146 MG/DL (20-135); eGFR 44 ML/MIN
[2024-09-30 11:47] LABS: TESTOSTERONE, SERUM 985 ng/dL (264-916)
== END 2024-09-28 23:59 | disposition home or self-care (01) ==
LOC: MRI 14:59
PROVIDERS: ATTEND Nurse Practitioner Family
DX: S93.691A Other sprain of right foot, initial encounter (principal); M84.475A Pathological fracture, left foot, initial encounter for fracture; M77.32 Calcaneal spur, left foot; E78.1 Pure hyperglyceridemia; I10 Essential (primary) hypertension; E29.9 Testicular dysfunction, unspecified; N40.1 Benign prostatic hyperplasia with lower urinary tract symptoms; M25.571 Pain in right ankle and joints of right foot; R60.0 Localized edema; M25.572 Pain in left ankle and joints of left foot; X58.XXXA Exposure to other specified factors, initial encounter; Y93.89 Activity, other specified; Y92.89 Other specified places as the place of occurrence of the external cause; Y99.8 Other external cause status
CPT/HCPCS: 36415; 73718; 73721; 80053; 80061; 84402; 84403; 84439; 84443; 85025

== ENCOUNTER 2025-03-21 08:02 | Outpatient (CLI) | payer BC ==
--- NOTE | 2025-03-21 17:49 | CARDIOLOGY REPORT ---
APPROVED REPORT EXAM: Comprehensive 2D, Doppler, and color-flow Echocardiogram. Patient Location: OUT-PATIENT Blood Pressure: 146/95 mmHg Heart Rate: 77 bpm Rhythm: SINUS Indications HYPERTENSION PRE-OP ANKLE SURGERY Bag Grader: Thu Kenny MD Previous echo: none 2D Dimensions RVDd 4.2 cm IVSd 0.7 (0.7-1.1cm) LVDd 5.0 cm PWd 1.0 (0.7-1.1cm) IVSs 1.5 (0.8-1.2cm) LVDs 2.8 (2.5-4.0cm) PWs 1.5 (0.8-1.2cm) LVOT Diameter 2.04 (1.8-2.4cm) Ao Asc Diam.3.92 cmFS (%) 43.8 % SV 90.2 ml M-Mode Dimensions Left Atrium(MM) 3.50 (2.5-4.0cm) IVSd 0.86 (0.7-1.1cm) LVDd 4.94 (4.0-5.6cm) Aortic Root 3.93 (2.2-3.7cm) PWd 1.05 (0.7-1.1cm) Aortic Cusp Exc 2.31 (1.5-2.0cm) IVSs 1.37 cm LVDs 2.88 (2.0-3.8cm) FS (%) 42 % PWs 1.84 cm ESV(Teich) 31.7 ml Aortic Valve AoV Peak Madan. 122.7 cm/s AoV VTI 19.9 cm AO Peak GR. 6.0 mmHg AO Mean GR. 3 mmHg LVOT VTI 19.66 cm LVOT Peak Madan. 101.8 cm/s AVIVA (VMAX) 2.70 cm2 AVIVA (VTI) 3.22 cm2 Mitral Valve MV E Velocity 43.3 cm/s MV DECEL TIME 259 ms MV A Velocity 63.7 cm/s MV PHT 59 ms E/A Ratio 0.7 MVA (PHT) 3.74 cm2 TDI E/Medial E' 8.1 Pulmonary Vein S2 Velocity 55.56 cm/s PVa [id number] msec LEFT VENTRICLE Normal LV size and wall thickness. Overall systolic function is normal. LVEF is 60-65%. GLS -10.2%. RIGHT VENTRICLE RV is moderately dilated with normal systolic function. ATRIA The left atrium size is normal. AORTIC VALVE Trileaflet AV appears mildly sclerotic without stenosis or insufficiency. MITRAL VALVE Mild MV annular calcification without stenosis. Trace regurgitation. TRICUSPID VALVE TV appears structurally normal with trace regurgitation. PULMONIC VALVE Normal PV without stenosis, physiologic insufficiency. GREAT VESSELS Aortic root is normal in size. Ascending aorta is normal in size. PERICARDIUM Normal pericardium. No effusion. Other Information Study Quality: Adequate, but difficult subcostal images. Conclusion Normal LV size and wall thickness. Overall systolic function is normal. LVEF is 60-65%. GLS -10.2%. RV is moderately dilated with normal systolic function. The left atrium size is normal. Trileaflet AV appears mildly sclerotic without stenosis or insufficiency. Mild MV annular calcification without stenosis. Trace regurgitation. TV appears structurally normal with trace regurgitation. Normal pericardium. No effusion.
== END 2025-03-21 23:59 | disposition home or self-care (01) ==
LOC: CARD DIAG 08:02
PROVIDERS: ATTEND Nurse Practitioner Family
DX: I08.8 Other rheumatic multiple valve diseases (principal); I11.9 Hypertensive heart disease without heart failure
CPT/HCPCS: 93306

== ENCOUNTER 2025-03-30 06:44 | Outpatient (CLI) | payer BC ==
[2025-03-30 07:21] LABS: ALANINE AMINOTRANSFERASE 47 U/L (12-78); ALBUMIN 3.9 G/DL (3.4-5.0); ALBUMIN/GLOBULIN RATIO 1.1 (1.1-1.5); ALKALINE PHOSPHATASE 113 IU/L (46-116); ANION GAP 9 (8-16); ASPARTATE AMINO TRANSFERASE 23 U/L (10-37); BILIRUBIN,TOTAL 0.5 MG/DL (0.1-1.0); BLOOD UREA NITROGEN 23 MG/DL (7-18); CALCIUM 8.5 MG/DL (8.5-10.1); CHLORIDE 105 MMOL/L (99-107); CREATININE 1.44 MG/DL (0.60-1.10); GLUCOSE 110 MG/DL (70-104); POTASSIUM 4.6 MMOL/L (3.5-5.1); SODIUM 140 MMOL/L (135-145); TOTAL CARBON DIOXIDE 26.5 MMOL/L (24-32); TOTAL PROTEIN 7.3 G/DL (6.4-8.2); eGFR 49 ML/MIN
[2025-03-30 07:32] LABS: BASOPHILS # (AUTO) 0.1 X10'3 (0-0.2); BASOPHILS % (AUTO) 0.9 % (0-1); EOSINOPHILS # (AUTO) 0.3 X10'3 (0-0.9); EOSINOPHILS % (AUTO) 5.6 % (0-6); HEMATOCRIT 47.4 % (42.0-52.0); HEMOGLOBIN 15.7 g/dl (14.0-17.9); LYMPHOCYTES # (AUTO) 1.1 X10'3 (1.1-4.8); LYMPHOCYTES % (AUTO) 18.1 % (21-51); MEAN CORPUSCULAR HEMOGLOBIN 28.4 PG (27.0-31.0); MEAN CORPUSCULAR HGB CONC 33.1 g/dL (33.0-36.5); MEAN CORPUSCULAR VOLUME 85.8 FL (78-98); MEAN PLATELET VOLUME 7.8 FL (7.4-10.4); MONOCYTES # (AUTO) 0.6 X10'3 (0-0.9); MONOCYTES % (AUTO) 9.9 % (2-12); NEUTROPHILS # (AUTO) 4.1 X10'3 (1.8-7.7); NEUTROPHILS % (AUTO) 65.5 % (42-75); PLATELET COUNT 251 X10'3 (140-440); RED BLOOD COUNT 5.52 X10'6 (4.70-6.10); RED CELL DISTRIBUTION WIDTH 14.6 % (11.5-14.5); WHITE BLOOD COUNT 6.2 X10'3 (4.5-11.0)
== END 2025-03-30 23:59 | disposition home or self-care (01) ==
LOC: LAB 06:44
PROVIDERS: ATTEND Hospitalist
DX: Z01.812 Encounter for preprocedural laboratory examination (principal)
CPT/HCPCS: 36415; 80053; 85025

== ENCOUNTER 2025-05-06 05:43 | Day surgery (SDC) | payer BC ==
[2025-05-02 14:04] LABS: MEAN PLATELET VOLUME 7.5 FL (7.4-10.4); PRE OP HEMATOCRIT 49.3 % (42.0-52.0); PRE OP HEMOGLOBIN 16.3 g/dL (14.0-17.9); PRE OP PLATELET COUNT 259 X10'3 (140-440); PRE OP WHITE BLOOD COUNT 6.7 10'3 (4.8-10.8); RED CELL DISTRIBUTION WIDTH 14.3 % (11.5-14.5)
[2025-05-02 14:06] LABS: LEUKOCYTE ESTERASE ,URINE NEGATIVE (Neg); NITRITES, URINE NEGATIVE (Neg); OCCULT BLOOD,URINE NEGATIVE (Neg)
[2025-05-02 14:08] LABS: UA COLLECTION TYPE NON-SPECIFIED
[2025-05-02 14:24] LABS: CREATININE 1.76 MG/DL (0.60-1.10); PRE OP ALT 49 U/L (30-65); PRE OP ANION GAP 10 (8-16); PRE OP AST 24 U/L (10-37); PRE OP BILIRUB, TOTAL 0.5 MG/DL (0.0-1.0); PRE OP GLUCOSE 135 MG/DL (70-104); PRE OP POTASSIUM 3.9 MMOL/L (3.4-5.1); PRE OP SODIUM 142 MMOL/L (135-145); TOTAL CARBON DIOXIDE 28.6 MMOL/L (24-32); eGFR 39 ML/MIN
[2025-05-06] VITALS (9 sets, daily range): BP systolic 130–145; BP diastolic 75–106; PULSE 75–87; RESP 11–16; TEMP 98.5; O2SAT 93–97
[~2025-05-06] VITALS: Ht 182.9 cm; Wt 115.0 kg
[~2025-05-06 05:43] MED LIST changes: +AMLO5TAB PO; +HYDR12.55 PO; -LISI1TAB49 PO
[2025-05-06] MEDS ORDERED: propofol 10mg/ml 20ml vial IV ONE (05:44)
[2025-05-06] MEDS: ceFAZolin 2gm/dext,iso 50mL 50 ML IV ONE (06:00)
[2025-05-06] MEDS: ringers solution, lacted 1,000 ML IV SCH (06:13)
[2025-05-06] MEDS ORDERED: bacitracin 15gm ointment TP ONE (06:35)
[2025-05-06] MEDS ORDERED: BUPIVAcaine 2.5mg/ml inj 50ml vial (contains preservative) ONE (06:35)
[2025-05-06] MEDS ORDERED: cloNIDine hcl/PF 100mcg/ml inj ONE (07:38)
[2025-05-06] MEDS ORDERED: midazolam 1 mg/ML 2ml injection ONE (07:39)
[2025-05-06] MEDS ORDERED: fentaNYL /PF 50mcg/ml 5ml ampule ONE (07:42)
[2025-05-06] MEDS ORDERED: hydrALAZINE 20mg/ml inj. IV PRN (08:05)
[2025-05-06] MEDS ORDERED: labetalol 20mg/4ml (5mg/ml) syringe IV PRN (08:05)
[2025-05-06] MEDS ORDERED: HYDROmorphone/PF 0.2 MG/ML SYRINGE IV PRN ×2 (08:05)
[2025-05-06] MEDS ORDERED: morphine 4 MG/ML inj SYRINge IV PRN (08:05)
[2025-05-06] MEDS ORDERED: ringers solution, lacted 1,000 ML IV SCH (08:05)
[2025-05-06] MEDS ORDERED: ketorolac trometh 30MG/ML vial 30 MG/ML VIAL IV ONE (08:05)
[2025-05-06] MEDS ORDERED: acetaminophen 1,000mg/100ml IV 100 ML IV PRN (08:05)
[2025-05-06] MEDS ORDERED: dexamethasone sod phosphate 4mg/ml inj. ONE (08:14)
[2025-05-06] MEDS ORDERED: ondansetron/PF 4mg/2ml inj ONE (08:14)
[2025-05-06] MEDS ORDERED: 0.9 % SODIUM CHLORIDE 10 ML VIAL ONE ×2 (08:14→08:15)
[2025-05-06] MEDS ORDERED: ePHEDrine 50MG/ML INJ. ONE (08:14)
[2025-05-06] MEDS ORDERED: ROPIVAcaine 0.5% (5mg/ml) 30ml vial ONE (08:15)
[2025-05-06] MEDS ORDERED: LIDOcaine 2% (20mg/ml) 5ml vial ONE (08:15)
[2025-05-06] MEDS ORDERED: morphine 4 MG/ML inj SYRINge ONE (09:24)
[2025-05-06] MEDS: ondansetron/PF 4mg/2ml inj IV PRN (10:44)
== END 2025-05-06 10:45 | disposition home or self-care (01) ==
LOC: PAS 05:43
PROVIDERS: ATTEND Podiatrist Foot & Ankle Surgery
DX: S93.402A Sprain of unspecified ligament of left ankle, initial encounter (principal); M25.472 Effusion, left ankle; M25.372 Other instability, left ankle; M76.72 Peroneal tendinitis, left leg; M25.572 Pain in left ankle and joints of left foot; Z79.82 Long term (current) use of aspirin; Z79.891 Long term (current) use of opiate analgesic; Z79.899 Other long term (current) drug therapy; Z98.890 Other specified postprocedural states; X58.XXXA Exposure to other specified factors, initial encounter; Y93.89 Activity, other specified; Y92.89 Other specified places as the place of occurrence of the external cause; Y99.8 Other external cause status
CPT/HCPCS: 27659; 27680; 27698; 29895; 36415; 80053; 81003; 82948; 85025; A6222; C1713; J0735; J1100; J2003; J2250; J2270; J2405; J2704; J2795; J3010; J3490; J7120; Z7506; Z7508; Z7512; A4618; A6449; A7000

== ENCOUNTER 2025-10-03 16:07 | Emergency (ER) | payer BC, OTHER ==
[~2025-10-03] VITALS: Ht 182.9 cm; Wt 106.8 kg
[2025-10-03 16:09] VITALS: BP 142/83; PULSE 64; TEMP 98.4; O2SAT 95
--- NOTE | 2025-10-03 16:13 | Physician Documentation ---
History of Present Illness ~ Chief Complaint: Back Pain Stated Complaint: SCIATIC PAIN Time Seen by MD: 16:38 Primary Medical Doctor: [facility] This is a 64-year-old male who presents with three days of low back pain radiating down his left thigh. Patient reports history of sciatica in the past with similar symptoms. Patient reports no recent injury, fever, unexpected weight loss, loss of bowel or bladder control, new weakness or numbness in his legs, and no history of cancer, osteoporosis, chronic steroid use, IV drug use, or tuberculosis. Patient reports no other acute symptoms or concerns. Medication Reconciliation Allergies: Coded Allergies: No Known Allergies (Unverified , 10/03/25) Scheduled Amlodipine Besylate (Amlodipine Besylate), 1 TABLET PO QPM, (Reported) Atorvastatin Calcium (Atorvastatin Calcium), 1 TAB PO QPM, (Reported) Cyclobenzaprine* (Cyclobenzaprine*), 1 TAB PO TID Hydrochlorothiazide (Hydrochlorothiazide), 1 TAB PO QAM, (Reported) Ibuprofen (Ibuprofen), 1 TAB PO Q8H Lidocaine (Lidoderm), 1 PATCH TOP DAILY Past Medical History Past Medical History: No Pertinent History, Hypertension, Kidney Stones Past Surgical History: appendectomy, orthopedic surgeries Alcohol Use: None Drug Use: none Lives with: Family Lives In: Home Occupation: employed Review of Systems ROS As stated above in the HPI, otherwise all systems are reviewed and negative. Physical Exam Physical Exam Vital Signs: Temperature: 98.4, Source: Temporal, Heart Rate: 64, Respiratory Rate: 18, BP: 142/83, Pulse Oximetry: 95, Weight: 106.820 Oxygen Flow Rate: 0 Physical Exam VITALS: Reviewed and as above. GENERAL: Alert, nontoxic appearing, no apparent distress. RESPIRATORY: No increased work of breathing, no respiratory distress, speaking in full clear sentences BACK: No central spinal tenderness, no step-offs, no crepitus NEURO: Steady unassisted gait Progress Results/Orders Results/Orders Completed Orders - VIRGINIA GARRETT TRACK DRESSER Ketorolac Trometh 15mg/Ml Vial (Toradol (10/03/25 16:15) Lidocaine 5% Patch (Lidoderm 5% Patch) (10/03/25 16:15) Vital Signs 10/03/25 10/03/25 16:09 16:45 Temp 98.4 Pulse 64 Resp 18 18 B/P (MAP) 142/83 Pulse Ox 95 O2 Flow Rate 0 Medical Decision Making Additional information obtaine: N/A Findings This is an otherwise healthy, well appearing 64-year-old male presented with back pain. Patients does not have any high-risk features on history trauma, IVDA, cancer, significant weight loss or history of TB], and the patient has a normal neurologic exam without fever, severe or progressive neurologic deficits, new or worsening urinary retention, urinary/stool incontinence or decreased perineal sensation; therefore imaging was not indicated in the ED. I doubt spinal fracture, epidural hematoma, epidural abscess, unstable spinal pathology, emergent renal or aortic pathology, or spinal cord compression. Upon discharge, the patients pain was controlled, and the patient was ambulatory without a risk of falling. Return precautions were discussed including worsening pain, new/worsening weakness/numbness, difficulty urinating, or incontinence. Differential Dx:Considerations: Aortic dissection, , Appendicitis, Bowel obstruction, Cholelithiasis, Cholangitis, DJD, Ectopic , Fracture, Musculoskeletal pain, Pancreatitis, Pyelonephritis, Strain, Urolithiasis, Renal infarction, Urinary tract infection, Other (Cauda equina, spinal epidural abscess) Departure Time of Disposition: 16:41 Disposition: 01 HOME / SELF CARE / HOMELESS Impression: Primary Impression: Low back pain Qualified Codes: M54.42 - Lumbago with sciatica, left side Condition: Improved Discharge Instructions: Sciatica Additional Instructions: Please use the medications as prescribed. You may benefit from physical therapy which your primary care provider would need to refer you to. Please follow up with your primary care provider in the next few days. Please return to the emergency department for any new or worsening concerning symptoms including but not limited to new weakness or numbness in your legs or loss of bowel or bladder control. Be prescribed cyclobenzaprine (Flexeril) is a muscle relaxer, please use this medication for cramping or spasming pain. This is a medication will make you drowsy do not use it in combination with alcohol, opioids, or other medications that make you drowsy and do not take this medication prior to driving or operating heavy machinery. Referrals: NO PRIMARY CARE PROVIDER (PCP) Prescriptions Ibuprofen (Ibuprofen) 800 Mg Tablet 1 TAB PO Q8H for pain for 10 Days, #30 TAB 0 Refills Prov: VIRGINIA GARRETTP 12/22/25 Cyclobenzaprine* (Cyclobenzaprine*) 10 Mg Tablet 1 TAB PO TID, #15 TAB Prov: VIRGINIA GARRETT 10/03/25 Lidocaine (Lidoderm) 5 % Adh..patch 1 PATCH TOP DAILY for 10 Days, #10 PATCH 0 Refills may wear up to 12 hours Prov: VIRGINIA GARRETT 10/03/25 Education Educated: Patient Educated regarding: diagnosis, treatment, prognosis, need for follow up Signature Scribe Signature: No scribe Attestation: The note accurately reflects work and decisions made by me.FLORI Wu 10/04/25 01:55 VIRGINIA GARRETT Oct 03, 2025 16:13
[2025-10-03] MEDS ORDERED: LIDO-52 TOP (16:43)
[2025-10-03] MEDS ORDERED: CYCL-1 PO (16:43)
[2025-10-03] MEDS ORDERED: IBUP-1986 PO (16:43)
[2025-10-03 16:45] VITALS: RESP 18
[2025-10-03] MEDS: ketorolac trometh 15mg/ml vial 15 MG/ML ML IM ONE (16:45)
== END 2025-10-03 17:02 | disposition home or self-care (01) ==
LOC: ER 16:08
DX: M54.50 Low back pain, unspecified (principal); Z90.49 Acquired absence of other specified parts of digestive tract; Z79.899 Other long term (current) drug therapy; Z87.442 Personal history of urinary calculi; Z98.890 Other specified postprocedural states
CPT/HCPCS: 96372; 99283; J1885